=== PATIENT | female | born 1975 | race Caucasian/White ===

== ENCOUNTER 2017-03-22 14:10 | Inpatient (IN) ==
[2017-03-22 15:08] LABS: Basophils % 0.3 %; Eosinophils # 0.1 K/mcL (0.0-0.6); Eosinophils % 0.7 %; Hemoglobin 12.2 g/dL (11.5-15.4); Immature Granulocytes % 0.3 % (0-4); Lymphocytes # 1.4 K/mcL (0.6-4.6); Lymphocytes % 12.3 %; Mean Corpuscular HGB Conc 30.5 g/dL (31.6-35.5); Mean Corpuscular Hemoglobin 21.7 pg (28.0-33.3); Mean Corpuscular Volume 71.3 fL (83.0-100.0); Mean Platelet Volume 8.8 fL (9.4-12.4); Monocytes # 0.7 K/mcL (0.0-1.3); Monocytes % 5.8 %; Neutrophils # 9.2 K/mcL (1.6-8.9); Platelet Count 208 K/mcL (140-400); Red Blood Count 5.61 M/mcL (3.82-4.97); Segmented Neutrophils % 80.6 %
[2017-03-22 15:22] LABS: BUN/Creatinine Ratio 15 (6-26); Blood Urea Nitrogen 15 mg/dL (6-20); Calcium 9.1 mg/dL (8.6-10.3); Carbon Dioxide 27 mEq/L (23-29); Chloride 104 mEq/L (98-107); Glucose 91 mg/dL (70-105); Osmolality,Calculated 284 (280-300); Sodium 137 mEq/L (136-145); eGFR For African Americans > 60 (> 60); eGFR For Non-African Americans > 60 (> 60)
[2017-03-22] MEDS ORDERED: Ketorolac 15 MG/ML VIAL IVP ONE (17:51)
--- NOTE | 2017-03-22 17:53 | Emergency Department Note ---
Disposition Clinical Impression: Pulmonary embolism Qualifiers: Pulmonary embolism type: other Chronicity: acute Acute cor pulmonale presence: without acute cor pulmonale Qualified Code(s): I26.99 - Other pulmonary embolism without acute cor pulmonale Disposition: Admitted As Inpatient Condition: Good Time of Disposition: 19:50 Chest Pain HPI - General Chief Complaint: ED Chest Pain Stated Complaint: chest pain Time Seen by Provider: 03/22/17 16:45 Source: patient, family Limitations: no limitations Vital Signs Reviewed: Yes Nursing Notes Reviewed: Yes - History of Present Illness HPI Narrative: 42-year-old female otherwise healthy on estrogen control for the past year resents to the ED with chest pain. Symptoms have been persistent for the past 4 days. She describes a sharp pain under the left breast on the left chest wall as well as the left neck. She reports this is persistent and has never gone away. Nothing seems to make it better or worse. Some associated shortness of breath. Hurts with deep inspiration and pleuritic. She has not taken anything for the pain. Denies any recent illness, fever or productive cough. No history of blood clots. She has been on multiple control medications with the recent change this past month. She denies any history of cardiac ischemic disease. Recent cardiac ablation 1 year ago for SVT. Denies smoking. Denies family cardiac history. Denies recent surgery, hospitalizations, long distance travel. Prior to my evaluation labs were ordered in our unremarkable. A D dimer was ordered and elevated at 2169. Will obtain a CT of the chest to evaluate for possible pulmonary embolism. Toward all for pain. Pt complaint: chest pain Onset (ago): day(s) Duration: constant Onset: during rest Pain Location: left chest Severity scale (1-10): 5 Quality: sharp Pain Radiation: none Improves with: nothing Worsens with: nothing - Related Data Home Medications Medication Instructions Recorded Confirmed Omeprazole Magnesium 20 mg PO DAILY 04/06/15 03/22/17 buPROPion HCl [Zyban] 150 mg PO BID 04/06/15 03/22/17 lamoTRIgine [Lamictal] 100 mg PO HS 04/06/15 03/22/17 Diltiazem HCl [Cardizem LA] 120 mg PO DAILY 10/02/15 03/22/17 Desog-E.estradiol/E.estradiol 1 tab PO DAILY 03/22/17 03/22/17 [Pimtrea 28 Day Tablet] Sertraline [Zoloft] 100 mg PO DAILY 03/22/17 03/22/17 Allergies Allergy/AdvReac Type Severity Reaction Status Date / Time Amoxicillin Allergy Hives Verified 03/22/17 19:44 Penicillins [PCN] Allergy Hives Verified 03/22/17 19:44 All systems ED: reviewed and negative except as stated. Review of Systems: As Per HPI Constitutional: Denies: fever, chills, weakness ENT ED: Denies: throat pain, congestion Cardiovascular: Reports: chest pain. Denies: dyspnea on exertion Respiratory: Reports: dyspnea. Denies: cough Gastrointestinal: Denies: abdominal pain, nausea, vomiting Genitourinary: Denies: urgency, dysuria Musculoskeletal: Denies: back pain, neck pain Integumentary: Denies: rash, abrasion Neurological: Denies: headache Chest Pain PMH - Past Medical History Medical history: Reports: SVT Surgical history: Reports: other (Cardiac ablasion) Psychiatric history: Reports: no psych history - Social History Smoking Status: Never smoker Alcohol use: Reports: none Drug use: Reports: none Physical Exam - General Limitations: no limitations General appearance: alert, in no apparent distress - Head Head exam: atraumatic, normocephalic, normal inspection - Eye Eye exam: Present: normal appearance, PERRL, EOMI - ENT ENT exam: normal exam, normal oropharynx, mucous membranes moist - Neck Neck exam: Present: normal inspection, full ROM, trachea midline - Chest Chest inspection: Present: normal inspection, symmetric chest wall rise. Absent : tenderness - Respiratory Respiratory exam: Present: normal lung sounds bilaterally. Absent: respiratory distress, wheezes - Cardiovascular Cardiovascular exam: Present: regular rate, normal rhythm, normal heart sounds. Absent: systolic murmur, diastolic murmur - Abdominal Exam Abdominal exam: Present: soft, Non-Tender, normal bowel sounds. Absent: tenderness, distention, guarding, rebound, rigidity - Extremities Exam Extremities exam: Present: normal inspection, full ROM, normal capillary refill. Absent: tenderness, pedal edema, calf tenderness - Back Exam Back exam: Present: normal inspection, full ROM. Absent: tenderness - Neurological Exam Neurological exam: Present: alert, oriented X3 - Psychiatric Psychiatric exam: Present: normal affect, normal mood - Skin Skin exam: Present: warm, dry, intact, normal color. Absent: rash, cyanosis, diaphoresis Course - Reevaluation(s) Reevaluation #1: Patient remains hemodynamically stable. No signs of heart injury, no elevation of troponin. This is not a massive pulmonary embolism. Will treat with 1 mg per kilogram Lovenox. Patient denies any placeable, black tarry stool, hemoptysis, hematemesis. Patient will require admission for her pulmonary embolism and further workup. She denies any family history of blood clots. Suspect this is likely a provoked PE from control pills. Patient and family are comfortable and in agreement with this plan. Time: 19:28 - Consultations Consultation #1: Spoke with [facility], PE on left seen on CT scan Time: 19:10 Consultation #2: Spoke with on-call hospitalist maday Tuttle to admit for chest pain, pulmonary embolism. No further orders at this time. Patient was given dose of Lovenox Time: 20:08 Vital Signs Temperature 98.4 F 03/22/17 14:14 Pulse Rate 103 03/22/17 14:14 Respiratory Rate 18 03/22/17 14:14 Blood Pressure 120/71 03/22/17 14:14 O2 Sat by Pulse Oximetry 96 03/22/17 14:14 Temperature 97.9 F 03/22/17 21:46 Pulse Rate 85 03/22/17 21:46 Respiratory Rate 16 03/22/17 21:46 Blood Pressure 105/70 03/22/17 21:46 O2 Sat by Pulse Oximetry 95 03/22/17 21:46 Oxygen Delivery Oxygen Delivery Room Air Chest Pain - MDM Narrative Medical decision making narrative: Patient was discussed with my attending physician who agrees with ED management and final disposition. They independently evaluated the patient. Please refer to their attestation to this encounter for additional information. This note was generated by [employer] voice recognition software and as a result grammatical or spelling errors may occur using this program. - Medical Records Medical records reviewed: Yes I reviewed the patient's medical records. - Lab Data Lab results reviewed: Yes I reviewed the patient's lab results. Result diagrams: 03/22/17 15:01 03/22/17 15:01 Lab Results 03/22/17 03/22/17 03/22/17 Range/Units 15:01 15:01 15:01 WBC 11.4 H (4.3-11.1) K/mcL RBC 5.61 H (3.82-4.97) M/mcL Hgb 12.2 (11.5-15.4) g/dL Hct 40.0 (35.3-44.9) % MCV 71.3 L (83.0-100.0) fL MCH 21.7 L (28.0-33.3) pg MCHC 30.5 L (31.6-35.5) g/dL RDW 18.0 H (11.5-14.5) % Plt Count 208 (140-400) K/mcL MPV 8.8 L (9.4-12.4) fL Immature Gran % 0.3 (0-4) % Seg Neutrophils % 80.6 % Lymphocytes % 12.3 % Monocytes % 5.8 % Eosinophils % 0.7 % Basophils % 0.3 % Neutrophils # 9.2 H (1.6-8.9) K/mcL Lymphocytes # 1.4 (0.6-4.6) K/mcL Monocytes # 0.7 (0.0-1.3) K/mcL Eosinophils # 0.1 (0.0-0.6) K/mcL Basophils # 0.0 (0.0-0.2) K/mcL PT (9.4-12.1) Seconds INR APTT (26.0-36.0) Seconds D-Dimer (0-500) ng/mLFEU Sodium 137 (136-145) mEq/L Potassium 4.0 (3.5-5.1) mEq/L Chloride 104 (98-107) mEq/L Carbon Dioxide 27 (23-29) mEq/L BUN 15 (6-20) mg/dL Creatinine 1.00 (0.60-1.20) mg/dL Est GFR ( Amer) > 60 (> 60) Est GFR (Non-Af Amer) > 60 (> 60) BUN/Creatinine Ratio 15 (6-26) Glucose 91 (70-105) mg/dL Calculated Osmolality 284 (280-300) Calcium 9.1 (8.6-10.3) mg/dL Troponin I < 0.03 (< 0.04) ng/mL B-Natriuretic Peptide (Less than 100) pg/mL 03/22/17 03/22/17 03/22/17 Range/Units 15:01 15:01 20:09 WBC (4.3-11.1) K/mcL RBC (3.82-4.97) M/mcL Hgb (11.5-15.4) g/dL Hct (35.3-44.9) % MCV (83.0-100.0) fL MCH (28.0-33.3) pg MCHC (31.6-35.5) g/dL RDW (11.5-14.5) % Plt Count (140-400) K/mcL MPV (9.4-12.4) fL Immature Gran % (0-4) % Seg Neutrophils % % Lymphocytes % % Monocytes % % Eosinophils % % Basophils % % Neutrophils # (1.6-8.9) K/mcL Lymphocytes # (0.6-4.6) K/mcL Monocytes # (0.0-1.3) K/mcL Eosinophils # (0.0-0.6) K/mcL Basophils # (0.0-0.2) K/mcL PT 13.0 H (9.4-12.1) Seconds INR 1.2 APTT 26.6 (26.0-36.0) Seconds D-Dimer 2169 H (0-500) ng/mLFEU Sodium (136-145) mEq/L Potassium (3.5-5.1) mEq/L Chloride (98-107) mEq/L Carbon Dioxide (23-29) mEq/L BUN (6-20) mg/dL Creatinine (0.60-1.20) mg/dL Est GFR ( Amer) (> 60) Est GFR (Non-Af Amer) (> 60) BUN/Creatinine Ratio (6-26) Glucose (70-105) mg/dL Calculated Osmolality (280-300) Calcium (8.6-10.3) mg/dL Troponin I (< 0.04) ng/mL B-Natriuretic Peptide 22 (Less than 100) pg/mL - Radiology Data Radiology results reviewed: Yes I reviewed the patient's radiology results. Chest X-Ray 03/22/17 14:16 IMPRESSION: No acute cardiopulmonary process. D/ / 03/22/2017 15:11:41 Jayjay Ramsey MD / reshmaay Interpreting Provider: Jayjay Ramsey MD Chest CTA 03/22/17 17:37 IMPRESSION: Filling defects are noted in the left-sided pulmonary arteries, greatest in the lateral main pulmonary artery and left lower lobe pulmonary arteries. This is likely due to pulmonary embolus. The airspace disease in the left lower lobe is most likely atelectasis. Developing infarct would be difficult to exclude. Right-sided pulmonary nodule without calcification. Critical results were called by Dr. Dante Ramirez to Wolfgang Blas on 03/22/2017 at 19:10. RECOMMENDATIONS: Fleischner Society guidelines for follow-up and management of incidentally detected pulmonary nodules: Single Solid Nodule: Nodule size less than 6 mm In a low-risk patient, no routine follow-up. In a high-risk patient, optional CT at 12 months. Nodule size equals 6-8 mm In a low-risk patient, CT at 6-12 months, then consider CT at 18-24 months. In a high-risk patient, CT at 6-12 months, then CT at 18-24 months. Nodule size greater than 8 mm In a low-risk patient, consider CT, PET/CT, or tissue sampling at 3 months. In a high-risk patient, consider CT, PET/CT, or tissue sampling at 3 months. Multiple Solid Nodules: Nodule size less than 6 mm In a low-risk patient, no routine follow-up. In a high-risk patient, optional CT at 12 months. Nodule size equals 6-8 mm In a low-risk patient, CT at 3-6 months, then consider CT at 18-24 months. In a high-risk patient, CT at 3-6 months, then CT at 18-24 months. Nodule size greater than 8 mm In a low-risk patient, CT at 3-6 months, then consider CT at 18-24 months. In a high-risk patient, CT at 3-6 months, then CT at 18-24 months. - Low risk patients include individuals with minimal or absent history of smoking and other known risk factors. - High risk patients include individuals with a history or smoking or known risk factors. Radiology 2017 http://pubs.rsna.org/doi/full/10.1148/radiol.[email or web address] D/ / Dante Ramirez / Dante Ramirez Interpreting Provider: Dante Ramirez - EKG Data EKG attestation: Yes I reviewed and interpreted this EKG. EKG results narrative: EKG performed 1417 interpreted by myself without cardiology, sinus tachycardia 10 1 bpm, no ST elevations or depression, no T wave inversion, possible incomplete RBBB, intervals are within normal limits. Compared to prior EKG performed at outside facility showed similar finding of sinus tachycardia 100 bpm. No acute ischemic changes. Heart Score - Score History: Slightly Suspicious EKG: Normal Age: Less than 45 Risk Factors: 1-2 risk factors Troponin: Less than normal limit HEART Score Total: 1 Attestation Statement - Attestation Attestation: I examined this patient and my medical decision-making was reviewed with the Resident Physician. I agree with the documented findings, disposition and treatment plan as described except to the extent set forth below. Findings consistent with pulmonary embolism. Patient will be admitted for further evaluation. Lovenox was given for anticoagulation. No signs of heart strain at this time.
[2017-03-22] MEDS ORDERED: *HR* Enoxaparin 120 MG/0.8 ML SYRINGE SQ STA (19:26)
[2017-03-22] MEDS ORDERED: 0.9 % Sodium Chloride 1,000 ML IVC ONE (19:29)
[2017-03-22] MEDS ORDERED: *HR* Morphine 2 MG/ML SYRINGE IVP ONE (19:30)
[2017-03-22 20:23] LABS: INR 1.2
[2017-03-22 20:26] LABS: Activated Partial Thrombo Time 26.6 Seconds (26.0-36.0)
--- NOTE | 2017-03-22 23:55 | Internal Med History&Physical ---
Date of Encounter: 03/22/17 Time of Encounter: 23:55 Assessment and Plan (1) Pulmonary embolism Current visit: Yes Status: Acute Intractable left chest pain secondary to left pulmonary emboli Stop control pills Options were discussed with the patient and she prefers to be on a heparin drip and start Coumadin at the moment. Stop Lovenox and start heparin drip with no bolus, start Coumadin 5 mg daily IV fluids Oxycodone and morphine for pain control Omeprazole for GI prophylaxis and heparin drip for the PD prophylaxis. She will be admitted for observation. Full code. Time spent on this admission 40 minutes Qualifiers: Pulmonary embolism type: other Chronicity: acute Acute cor pulmonale presence: without acute cor pulmonale Qualified Code(s): I26.99 - Other pulmonary embolism without acute cor pulmonale (2) Leukocytosis Current visit: Yes Status: Acute Qualifiers: Leukocytosis type: unspecified Qualified Code(s): D72.829 - Elevated white blood cell count, unspecified (3) GERD (gastroesophageal reflux disease) Current visit: Yes Status: Acute Continue omeprazole Qualifiers: Esophagitis presence: without esophagitis Qualified Code(s): K21.9 - Gastro -esophageal reflux disease without esophagitis (4) SVT (supraventricular tachycardia) Current visit: Yes Status: Acute Continue diltiazem Internal Medicine - H&P: HPI Chief complaint: Chest pain Admitted From: Emergency Dept History of present illness: Ms. Aggarwal is a 42 year old female with a past medical history of SVT status post cardiac ablation currently taking diltiazem, GERD, depression with no prior history of clots, currently on control pills. The patient mentioned that for the past 4 days she has been experiencing left chest pain, sharp 9 out of 10 in intensity with no associated factors and mild shortness of breath. Heart rate was 95 white blood cell count 11.4 d-dimer was 2169, CT scan of the chest was performed showing left lateral and lower pulmonary arteries emboli. Patient was given a dose of Lovenox, pain is still present. Denies any prolonged traveling or prior episodes. No other complaints, no leg swelling Past Med Surg Social Fam HX - Past Medical History Medical history: GERD, SVT, other Psychiatric history: no psych history, depression - Past Surgical History Surgical History: other (Cardiac ablation) - Social History Smoking Status: Never smoker Smokeless Tobacco Status: No Alcohol use: none Drug use: none - Family History Mother Living Status: Still Living Father Living Status: Still Living - Additional Family History Additional family history: Denies any family history Internal Medicine - H&P: Meds Omeprazole Magnesium 20 mg PO DAILY 04/06/15 [History] buPROPion HCl [Zyban] 150 mg PO BID 04/06/15 [History] lamoTRIgine [Lamictal] 100 mg PO HS 04/06/15 [History] Diltiazem HCl [Cardizem LA] 120 mg PO DAILY 10/02/15 [History] Desog-E.estradiol/E.estradiol [Pimtrea 28 Day Tablet] 1 tab PO DAILY 03/22/17 [ History] Sertraline [Zoloft] 100 mg PO DAILY 03/22/17 [History] 3 Allergy/AdvReac Type Severity Reaction Status Date / Time Amoxicillin Allergy Hives Verified 03/22/17 19:44 Penicillins [PCN] Allergy Hives Verified 03/22/17 19:44 All Systems PM: A 10-system review of systems was performed and is negative for pertinent findings except as documented above in the HPI. Review of systems: Chest pain shortness of breath, other systems out of the 10 revealed were negative - Constitutional Vitals: Temp Pulse Resp BP Pulse Ox 97.9 F 85 16 105/70 95 03/22/17 21:46 03/22/17 21:46 03/22/17 21:46 03/22/17 21:46 03/22/17 21:46 General appearance: Present: A&O X 3 - Head Head exam: Present: atraumatic, normocephalic - Eye Eye exam: Present: PERRL, conjuntiva pink, sclera anicteric Pupils: Present: PERRL - Neck Neck exam general surgery: Present: supple, trachea midline. Absent: lymphadenopathy - Respiratory Respiratory exam: Present: CTAB. Absent: accessory muscle use, rales, rhonchi, wheezes - Cardiovascular Cardiovascular exam: Present: RRR, +S1, +S2. Absent: diastolic murmur, gallop, rubs, systolic murmur - GI/Abdominal GI/Abdominal exam: Present: normal bowel sounds, soft, no peritoneal signs. Absent: distended, tenderness - Extremities Exam Extremities exam: Present: warm, radial pulses palpable and symmetrical. Absent : calf tenderness, cyanotic, pedal edema - Neurological Exam Neurological exam: Present: CN II-XII intact, oriented X3, no focal deficits. Absent: pronater drift, facial droop, speech deficit - Skin Skin exam: Present: dry, intact Internal Med - H&P Results - Labs CBC & Chem 7: 03/22/17 15:01 03/22/17 15:01
[2017-03-23] MEDS ORDERED: *HR* Warfarin 5 MG TABLET PO ONE ×2 (00:13→18:00)
[2017-03-23] MEDS ORDERED: Naloxone 0.4 MG/ML INJ IVP PRN (00:14)
[2017-03-23] MEDS ORDERED: *HR* OxyCODONE Immed Rel 5 MG TABLET PO PRN (00:14)
[2017-03-23] MEDS ORDERED: Acetaminophen 325 MG TABLET PO PRN (00:14)
[2017-03-23] MEDS ORDERED: Ondansetron 4 MG/2 ML VIAL IVP PRN (00:14)
[2017-03-23] MEDS ORDERED: *HR* Heparin 5,000 UNIT/ML VIAL IVP PRN ×4 (00:14→08:00)
[2017-03-23] MEDS ORDERED: Heparin 25,000 UNIT/500 ML D5W 25,000 UNIT/500 ML BAG IVC SCH (00:15)
[2017-03-23] MEDS: *HR* Morphine 2 MG/ML SYRINGE IVP PRN ×2 (01:36→19:07)
[2017-03-23] MEDS: 0.9 % Sodium Chloride 1,000 ML IVC SCH ×2 (01:36→15:01)
[2017-03-23 01:42] LABS: Hemoglobin 10.9 g/dL (11.5-15.4); Mean Corpuscular HGB Conc 30.3 g/dL (31.6-35.5); Mean Corpuscular Hemoglobin 21.6 pg (28.0-33.3); Mean Corpuscular Volume 71.4 fL (83.0-100.0); Mean Platelet Volume 9.4 fL (9.4-12.4); Platelet Count 201 K/mcL (140-400); Red Blood Count 5.04 M/mcL (3.82-4.97); Red Cell Distribution Width 17.7 % (11.5-14.5)
[2017-03-23 01:47] LABS: INR 1.2; Prothrombin Time 12.8 Seconds (9.4-12.1)
[2017-03-23 01:49] LABS: Activated Partial Thrombo Time 33.8 Seconds (26.0-36.0)
[2017-03-23 07:17] LABS: INR 1.2; Prothrombin Time 13.1 Seconds (9.4-12.1)
[2017-03-23] MEDS: Heparin 25,000 UNIT/500 ML D5W 25,000 UNIT/500 ML BAG IVC SCH ×2 (07:54→22:00)
[2017-03-23] MEDS ORDERED: *HR* HYDROmorphone (PF) 1 MG/ML SYRINGE IVP ONE (08:20)
[2017-03-23] MEDS: BuPROPion SR (12 HR) 150 MG TABLET PO SCH ×2 (09:15→21:20)
[2017-03-23] MEDS: Diltiazem CD (24hr) 120 MG CAPSULE PO SCH (09:15)
[2017-03-23] MEDS: traMADol 50 MG TABLET PO PRN ×2 (15:00→21:20)
--- NOTE | 2017-03-23 16:34 | Electrocardiograph Report ---
[address] [place], [place] [address] Test Date: 2017-03-22 Pat Name: Napoleon Aggarwal Department: 104 Room: 3B45 Gender: F [employer]: MAMI : 1975 Requested By: Arabella See Order Number: [id number] Reading MD: Barbara Kuhn Measurements Intervals [place] Rate: 101 P: 54 AK: 141 QRS: 43 QRSD: 89 T: 29 QT: 321 QTc: 379 Interpretive Statements SINUS TACHYCARDIA INCOMPLETE RBBB ABNORMAL RHYTHM ECG Electronically Signed On 03-23-2017 16:33:04 EST by Barbara Kuhn
--- NOTE | 2017-03-23 17:37 | Internal Med Progress Note ---
Date of Encounter: 03/23/17 Time of Encounter: 11:00 - Assessment and plan (1) Pulmonary embolism Current Visit: Yes Status: Acute Assessment and plan: -CTPA showed filling defects are noted in the left-sided pulmonary arteries, greatest in the lateral main pulmonary artery and left lower lobe pulmonary arteries. -Echocardiogram showed LVEF of 60% with normal left and right ventricular structure and function with no valvular dysfunction. No pulmonary hypertension identified. -Patient with chest discomfort secondary to pulmonary embolism -She is hemodynamically stable -Discussed with patient about anticoagulation options including Xarelto, Eliquis and Coumadin; patient to decide. -Will continue therapeutic heparinization -Will consult pulmonology and appreciate recommendations. Qualifiers: Pulmonary embolism type: other Chronicity: acute Acute cor pulmonale presence: without acute cor pulmonale Qualified Code(s): I26.99 - Other pulmonary embolism without acute cor pulmonale (2) SVT (supraventricular tachycardia) Current Visit: Yes Status: Acute Assessment and plan: -Will continue Cardizem (3) GERD (gastroesophageal reflux disease) Current Visit: Yes Status: Acute Assessment and plan: -Continue PPI Qualifiers: Esophagitis presence: without esophagitis Qualified Code(s): K21.9 - Gastro -esophageal reflux disease without esophagitis (4) DVT prophylaxis Current Visit: Yes Status: Acute Assessment and plan: -Continue therapeutic heparin - Subjective Interval history: Patient with chest discomfort secondary to left pulmonary embolism. She is hemodynamically stable - Constitutional Vitals: Temp Pulse Resp BP Pulse Ox 97.7 F 94 20 109/73 96 03/23/17 15:07 03/23/17 15:07 03/23/17 15:07 03/23/17 15:07 03/23/17 15:07 General appearance: Present: A&O X 3 - Respiratory Respiratory exam: Present: CTAB. Absent: accessory muscle use, rales, rhonchi, wheezes - Cardiovascular Cardiovascular exam: Present: RRR, +S1, +S2. Absent: diastolic murmur, gallop, rubs, systolic murmur Internal Medicine: Result - Labs CBC & Chem 7: 03/23/17 00:49 03/22/17 15:01 Labs: Short CBC 03/23/17 Range/Units 00:49 WBC 10.4 (4.3-11.1) K/mcL Hgb 10.9 L (11.5-15.4) g/dL Hct 36.0 (35.3-44.9) % Plt Count 201 (140-400) K/mcL - ABG Interpretation ABG results: PT/INR, D-dimer PT 13.1 Seconds (9.4-12.1) H 03/23/17 06:04 D-Dimer 2169 ng/mLFEU (0-500) H 03/22/17 15:01 - Impressions Impressions Echocardiogram 03/23/17 10:03 Impressions: LVEF 60%. Normal left ventricular diastolic function. Normal right ventricular structure and function. No significant valvular dysfunction. No pulmonary hypertension. Left Ventricular Wall Motion: Rest Echo Findings All wall segments showed normal motion. Findings: Study Quality * Technically adequate exam. ECG Findings * Normal sinus rhythm. Left Ventricle * LVEF 60%. * Normal LV chamber size, wall thickness and function. * Normal left ventricular diastolic function. Right Ventricle * Normal right ventricular structure and function. Left Atrium * Normal left atrial size. Right Atrium * Normal right atrial size. Aortic Valve * No aortic regurgitation. * Aortic valve not well visualized. * No aortic stenosis. Mitral Valve * Normal mitral valve structure. * No mitral regurgitation. * No mitral stenosis. Tricuspid Valve * Tricuspid valve not well visualized. * Trace tricuspid regurgitation. * Estimated RA pressure is 3 mmHg. * Estimated RVSP is 15 mmHg. * No pulmonary hypertension. Pulmonic Valve * Pulmonic valve is not well visualized. * No pulmonic stenosis. * No pulmonic regurgitation. Pulmonary Artery * Pulmonary artery not well visualized. Aorta * Normally sized aortic root. Pericardium * There is no pericardial effusion present. Interatrial Septum * No evidence of PFO by color Doppler. IVC * Normal IVC dimensions and inspiratory collapse. Consult Discharge Plan - Plan Referrals: Sherry Mooney, [employer]PUT[employer] [Primary Care Provider] -
[2017-03-23] MEDS: lamoTRIgine 100 MG TABLET PO SCH (21:20)
[2017-03-24] MEDS: *HR* Morphine 2 MG/ML SYRINGE IVP PRN ×3 (01:35→09:52)
[2017-03-24] MEDS: Diltiazem CD (24hr) 120 MG CAPSULE PO SCH (09:52)
[2017-03-24] MEDS: BuPROPion SR (12 HR) 150 MG TABLET PO SCH ×2 (09:52→20:50)
--- NOTE | 2017-03-24 16:43 | Pain Management Consultation ---
Date of Encounter: 03/24/17 Time of Encounter: 16:41 Assessment and Plan (1) Myofascial pain Current Visit: Yes Status: Acute The patient was evaluated for low back pain that seems to be most likely secondary to muscular dysfunction and spasm. Recommend followin. If no contraindications based on current medical therapy for pulmonary embolus, consider IV NSAID therapy for anti-inflammatory treatment. 2. Consider oral muscle relaxant 3 times a day when necessary. 3. Recommend continued use of ice but not heat. 4. I discussed the fact that this is most likely a muscle spasm syndrome with the patient and I impressed upon her that movement and moving her right lower limb would be beneficial. 5. Follow up with me routinely as an outpatient. The assessment and plan as outlined above was discussed with the patient and/or family members who expressed understanding and agreement. All questions were answered. History of Present Illness Chief complaint: back pain HPI: Ms. Aggarwal is a 42 year old female who is a patient of mine. The patient began to experience chest pain for the first time on Tuesday which is approximately 5 days ago. The pain never subsided and she was evaluated in the emergency department on Tuesday and was eventually admitted to the hospital for a pulmonary embolus. Just before Tuesday, the patient had been experiencing tightness that was episodic in her right lower back and right buttock. The pain did not exist on the left side at that time. After being admitted to the hospital on Tuesday, the pain became severe since she has been lying in bed for the past 3 days. The pain is described as a deep burning and aching sensation that gets worse when she moves. The pain score when moving is 10/10. When lying still, pain subsides. She denies pain radiating into her leg. Oral opioids and IV opioids are not effective to control pain. Past Med Surg Social Fam HX - Past Medical History Medical history: GERD, SVT, other Psychiatric history: no psych history, depression - Past Surgical History Surgical History: other (Cardiac ablation) - Social History Smoking Status: Never smoker Smokeless Tobacco Status: No Alcohol use: none Drug use: none - Family History Mother Living Status: Still Living Father Living Status: Still Living Medications and Allergies Omeprazole Magnesium 20 mg PO DAILY 04/06/15 [History] buPROPion HCl [Zyban] 150 mg PO BID 04/06/15 [History] lamoTRIgine [Lamictal] 100 mg PO HS 04/06/15 [History] Diltiazem HCl [Cardizem LA] 120 mg PO DAILY 10/02/15 [History] Desog-E.estradiol/E.estradiol [Pimtrea 28 Day Tablet] 1 tab PO DAILY 03/22/17 [ History] Sertraline [Zoloft] 100 mg PO DAILY 03/22/17 [History] 3 Allergy/AdvReac Type Severity Reaction Status Date / Time Amoxicillin Allergy Hives Verified 03/22/17 19:44 Penicillins [PCN] Allergy Hives Verified 03/22/17 19:44 Review of Systems - Constitutional Constitutional ROS IM: no photophobia, no phonophobia, no daytime sleepiness, no fever(s), no stops breathing during sleep - EENT Nose, mouth and throat: no headache(s), no neck pain, no neck trauma - Cardiovascular Cardiovascular ROS: no chest pain, no leg edema, no lightheadedness - Respiratory Respiratory: no pain on inspiration, no pain with cough - Gastrointestinal Gastrointestinal: no abdominal pain, no constipation, no diarrhea, no heartburn - Genitourinary Genitourinary ROS: no difficulty urinating, no flank pain, no urinary hesitancy - Musculoskeletal Musculoskeletal ROS: as per HPI, no muscle weakness, no numbness, no radiating pain into limb, no tingling - Integumentary Integumentary: no erythema, no lesions, no swelling - Neurological Neurological ROS: no abnormal gait, no behavioral changes, no focal weakness, no radicular pain - Psychiatric Psychiatric general: no anxiety, no confusion, no depression - Hematologic/Lymphatic Hematologic/Lymphatic pediatric: no easy bleeding, no easy bruising Physical Exam Initial Vital Signs Temp Pulse Resp BP Pulse Ox 98.4 F 103 18 120/71 96 03/22/17 14:14 03/22/17 14:14 03/22/17 14:14 03/22/17 14:14 03/22/17 14:14 - Additional Findings EYES:: pupils equal and round, no myosis. SKIN:: no areas of echymoses or petechiae CARDIOVASCULAR:: Tachycardia PULMONARY:: Quiet, normal respiratory pattern. GASTROINTESTINAL:: Nontender abdomen MUSCULOSKELETAL INSPECTION:: no surgical scarring in lumbar spine or right lateral hip PALPATION:: paraspinous musculature is not tender to deep palpation in the lumbar area bilaterally. There is no obvious muscle spasm with palpation of the gluteal muscles or the right lumbar paraspinal muscles. ROM:: Active flexion and extension are reduced in the lumbar area. Active Rotation is reduced in the lumbar area. STRENGTH:: RIGHT hip flexors: 5/5 :: LEFT hip flexors: 5/5 RIGHT hip adduction 5/5 :: LEFT hip adduction 5/5 RIGHT hip abduction 5/5 :: LEFT hip abduction 5/5 RIGHT knee extension 5/5 :: LEFT knee extension 5/5 RIGHT knee flexion 5/5 :: LEFT knee flexion 5/5 RIGHT ankle dorsiflexion 5/5 :: LEFT ankle dorsiflexion 5/5 RIGHT ankle plantarflexion 5/5 :: LEFT ankle plantarflexion 5/5 RIGHT great toe dorsiflexion 5/5 :: LEFT great toe dorsiflexion 5/5 RIGHT great toe plantarflexion 5/5 :: LEFT great toe plantarflexion 5/5 STRAIGHT LEG RAISE:: RLE is negative at 120 degrees. NEUROLOGIC SENSATION:: hypesthesia is not noted in lower extremity dermatomes. SIGNS OF NEUROVASCULAR COMPRESSION Spasticity:: none Atrophy:: not present in UE or LE musculature Fasciculation:: not present in UE or LE musculature PSYCHIATRIC:: ORIENTATION:: awake and alert. INSIGHT:: good awareness of illness. AFFECT:: pleasant. Radiology Images Viewed By Me:: CT angiogram of the chest shows thoracolumbar scoliosis in addition to a pulmonary embolus I have reviewed and agree with information documented in the scribed documentation, ROS, patient medications, allergies, medical history, surgical history, social history, and family history. Results - Labs 03/23/17 00:49 03/22/17 15:01 Abnormal lab results RBC 5.04 M/mcL (3.82-4.97) H 03/23/17 00:49 Hgb 10.9 g/dL (11.5-15.4) L 03/23/17 00:49 MCV 71.4 fL (83.0-100.0) L 03/23/17 00:49 MCH 21.6 pg (28.0-33.3) L 03/23/17 00:49 MCHC 30.3 g/dL (31.6-35.5) L 03/23/17 00:49 RDW 17.7 % (11.5-14.5) H 03/23/17 00:49 Neutrophils # 9.2 K/mcL (1.6-8.9) H 03/22/17 15:01 PT 13.1 Seconds (9.4-12.1) H 03/23/17 06:04 APTT 62.4 Seconds (26.0-36.0) H 03/24/17 04:51 D-Dimer 2169 ng/mLFEU (0-500) H 03/22/17 15:01 All other labs normal. Consult Discharge Plan - Plan Referrals: Sherry Mooney, [employer] [Primary Care Provider] -
--- NOTE | 2017-03-24 17:53 | Internal Med Progress Note ---
Date of Encounter: 03/24/17 Time of Encounter: 11:00 - Assessment and plan (1) Pulmonary embolism Current Visit: Yes Status: Acute Assessment and plan: -CTPA showed filling defects are noted in the left-sided pulmonary arteries, greatest in the lateral main pulmonary artery and left lower lobe pulmonary arteries. -Echocardiogram showed LVEF of 60% with normal left and right ventricular structure and function with no valvular dysfunction. No pulmonary hypertension identified. -Patient with chest discomfort secondary to pulmonary embolism -She is hemodynamically stable -Discussed with patient about anticoagulation options including Xarelto, Eliquis and Coumadin; patient to decide. -Patient has decided for Coumadin so we will bridge with Lovenox overnight and plan for discharge with Lovenox and Coumadin on 03/25/17 Qualifiers: Pulmonary embolism type: other Chronicity: acute Acute cor pulmonale presence: without acute cor pulmonale Qualified Code(s): I26.99 - Other pulmonary embolism without acute cor pulmonale (2) SVT (supraventricular tachycardia) Current Visit: Yes Status: Acute Assessment and plan: -Will continue Cardizem (3) GERD (gastroesophageal reflux disease) Current Visit: Yes Status: Acute Assessment and plan: -Continue PPI Qualifiers: Esophagitis presence: without esophagitis Qualified Code(s): K21.9 - Gastro -esophageal reflux disease without esophagitis (4) DVT prophylaxis Current Visit: Yes Status: Acute Assessment and plan: -Coumadin with Lovenox bridge - Subjective Interval history: Patient with chest discomfort secondary to left pulmonary embolism. She is hemodynamically stable - Constitutional Vitals: Temp Pulse Resp BP Pulse Ox 97.9 F 84 16 126/73 95 03/24/17 16:14 03/24/17 16:14 03/24/17 16:14 03/24/17 16:14 03/24/17 16:14 General appearance: Present: A&O X 3 - Respiratory Respiratory exam: Present: CTAB. Absent: accessory muscle use, rales, rhonchi, wheezes - Cardiovascular Cardiovascular exam: Present: RRR, +S1, +S2. Absent: diastolic murmur, gallop, rubs, systolic murmur Internal Medicine: Result - Labs CBC & Chem 7: 03/23/17 00:49 03/22/17 15:01 - ABG Interpretation ABG results: PT/INR, D-dimer PT 13.1 Seconds (9.4-12.1) H 03/23/17 06:04 D-Dimer 2169 ng/mLFEU (0-500) H 03/22/17 15:01 Consult Discharge Plan - Plan Referrals: Sherry Mooney, CINETECHNICIAN [Primary Care Provider] -
--- NOTE | 2017-03-24 17:56 | Pulmonology Consult Note ---
Date of Encounter: 03/24/17 Time of Encounter: 07:40 Assessment and Plan (1) Pulmonary embolism Current Visit: Yes Status: Acute It appears that patient has provoked pulmonary embolism since she is been on oral contraceptive pills and she does not have any signs or labs findings suggestive of right heart strain and she remains hemodynamically stable. Discussed with the patient and also primary team patient can be transition to oral anticoagulation of patient's preference and she needs at least 3-6 months of treatment. She should avoid agents which triggers this events. Thank you very much for consultation and please do not hesitate to call for any questions. Patient will follow-up with her primary care for outpatient treatment. Qualifiers: Pulmonary embolism type: other Chronicity: acute Acute cor pulmonale presence: without acute cor pulmonale Qualified Code(s): I26.99 - Other pulmonary embolism without acute cor pulmonale (2) HEYDI (obstructive sleep apnea) Current Visit: Yes Status: Chronic I have advised patient to be compliant with her treatment and she is welcome to follow up as outpatient to address her issues with the CPAP. She understands all the risks associated with untreated obstructive sleep apnea. History of Present Illness Consult date: 03/24/17 Requesting physician: Mikey Esqueda Reason for consult: pulmonary embolism Chief complaint: Chest pain History of present illness: This is a very pleasant 42-year-old female with history of SVT status post cardiac ablation and also history of depression and obstructive sleep apnea but she has not been using care CPAP. Patient presented to the hospital with left- sided chest pain and she was found to have pulmonary embolism. Patient denies any recent surgery and no history of blood clots in the past or miscarriages. She denies any history of lupus. Patient denies any family history of upper coagulable conditions. Patient denies any recent history of traveling long distances. She is to have generalized body ache and was found to have as admission pulmonary embolism. She has no significant productive cough or wheezing. She denies any significant weight loss. Past Med Surg Social Fam HX - Past Medical History Medical history: GERD, SVT, other Psychiatric history: no psych history, depression - Past Surgical History Surgical History: other (Cardiac ablation) - Social History Smoking Status: Never smoker Smokeless Tobacco Status: No Alcohol use: none Drug use: none - Family History Mother Living Status: Still Living Father Living Status: Still Living Medications and Allergies Omeprazole Magnesium 20 mg PO DAILY 04/06/15 [History] buPROPion HCl [Zyban] 150 mg PO BID 04/06/15 [History] lamoTRIgine [Lamictal] 100 mg PO HS 04/06/15 [History] Diltiazem HCl [Cardizem LA] 120 mg PO DAILY 10/02/15 [History] Desog-E.estradiol/E.estradiol [Pimtrea 28 Day Tablet] 1 tab PO DAILY 03/22/17 [ History] Sertraline [Zoloft] 100 mg PO DAILY 03/22/17 [History] 3 Allergy/AdvReac Type Severity Reaction Status Date / Time Amoxicillin Allergy Hives Verified 03/22/17 19:44 Penicillins [PCN] Allergy Hives Verified 03/22/17 19:44 All Systems: A 10-system review of systems was performed and is negative for pertinent findings except as documented above in the HPI. Physical Examination Vital Signs: Vital Signs, Last 4 Hours Temp Pulse Resp BP Pulse Ox 03/24/17 16:14 97.9 F 84 16 126/73 95 General appearance: no acute distress Eyes: nonicteric ENT: oropharynx moist Mallampati (class): 3 Neck: supple, no lymphadenopathy Effort: normal Inspection: normal Auscultation: bilateral: clear Percussion: bilateral: not dull Cardiovascular: regular rate and rhythm Gastrointestinal: normoactive bowel sounds, non-distended Extremities: no cyanosis, no edema normal mental status, non-focal exam mood appropriate Results - Laboratory Findings CBC and BMP: 03/23/17 00:49 03/22/17 15:01 PT/INR, D-dimer PT 13.1 Seconds (9.4-12.1) H 03/23/17 06:04 D-Dimer 2169 ng/mLFEU (0-500) H 03/22/17 15:01 Abnormal lab findings: Abnormal lab results RBC 5.04 M/mcL (3.82-4.97) H 03/23/17 00:49 Hgb 10.9 g/dL (11.5-15.4) L 03/23/17 00:49 MCV 71.4 fL (83.0-100.0) L 03/23/17 00:49 MCH 21.6 pg (28.0-33.3) L 03/23/17 00:49 MCHC 30.3 g/dL (31.6-35.5) L 03/23/17 00:49 RDW 17.7 % (11.5-14.5) H 03/23/17 00:49 Neutrophils # 9.2 K/mcL (1.6-8.9) H 03/22/17 15:01 PT 13.1 Seconds (9.4-12.1) H 03/23/17 06:04 APTT 62.4 Seconds (26.0-36.0) H 03/24/17 04:51 D-Dimer 2169 ng/mLFEU (0-500) H 03/22/17 15:01 - Diagnostic Findings CT scan - chest: report reviewed, image reviewed - Clinical Findings Intake & Output: Intake & Output 03/24/17 03/24/17 03/24/17 07:59 15:59 23:59 Intake Total 475 / 475 Output Total 800 / 800 Balance -325 / -325 Weight 116.7 kg Consult Discharge Plan - Plan Referrals: Sherry Mooney, [employer]ER [Primary Care Provider] -
[2017-03-24] MEDS ORDERED: *HR* Warfarin 5 MG TABLET PO ONE (18:00)
[2017-03-24] MEDS ORDERED: *HR* Enoxaparin 120 MG/0.8 ML SYRINGE SQ SCH (20:00)
[2017-03-24] MEDS: traMADol 50 MG TABLET PO PRN (20:49)
[2017-03-24] MEDS: lamoTRIgine 100 MG TABLET PO SCH (20:50)
[2017-03-24] MEDS: *HR* Enoxaparin 120 MG/0.8 ML SYRINGE SQ SCH (22:13)
[2017-03-24] MEDS: Ibuprofen 400 MG TABLET PO PRN (23:40)
[2017-03-25] MEDS: *HR* Enoxaparin 120 MG/0.8 ML SYRINGE SQ SCH ×2 (05:47→16:47)
[2017-03-25 06:02] LABS: INR 1.5; Prothrombin Time 15.9 Seconds (9.4-12.1)
[2017-03-25] MEDS: Diltiazem CD (24hr) 120 MG CAPSULE PO SCH (10:02)
[2017-03-25] MEDS: BuPROPion SR (12 HR) 150 MG TABLET PO SCH (10:02)
[2017-03-25] MEDS: Ibuprofen 400 MG TABLET PO PRN (12:48)
--- NOTE | 2017-03-25 15:41 | Discharge Summary ---
Date of Encounter: 03/25/17 Time of Encounter: 11:00 - Discharge Diagnosis (1) Pulmonary embolism Priority: Primary Status: Acute Qualifiers: Pulmonary embolism type: other Chronicity: acute Acute cor pulmonale presence: without acute cor pulmonale Qualified Code(s): I26.99 - Other pulmonary embolism without acute cor pulmonale (2) SVT (supraventricular tachycardia) Priority: Secondary Status: Acute (3) GERD (gastroesophageal reflux disease) Priority: Secondary Status: Acute Qualifiers: Esophagitis presence: without esophagitis Qualified Code(s): K21.9 - Gastro -esophageal reflux disease without esophagitis - Discharge Medications Prescriptions: Enoxaparin [Lovenox] 120 mg SQ Q12HCO #60 syringe Cyclobenzaprine [Flexeril] 10 mg PO TID PRN #20 tablet PRN Reason: Spasms Warfarin [Coumadin] 5 mg PO DAILY@1800 #30 tablet Home Medications: Omeprazole Magnesium 20 mg PO DAILY 04/06/15 [History] buPROPion HCl [Zyban] 150 mg PO BID 04/06/15 [History] lamoTRIgine [Lamictal] 100 mg PO HS 04/06/15 [History] Diltiazem HCl [Cardizem LA] 120 mg PO DAILY 10/02/15 [History] Sertraline [Zoloft] 100 mg PO DAILY 03/22/17 [History] Cyclobenzaprine [Flexeril] 10 mg PO TID PRN #20 tablet 03/25/17 [Rx] Enoxaparin [Lovenox] 120 mg SQ Q12HCO #60 syringe 03/25/17 [Rx] Warfarin [Coumadin] 5 mg PO DAILY@1800 #30 tablet 03/25/17 [Rx] Allergies/Adverse Reactions: 3 Allergy/AdvReac Type Severity Reaction Status Date / Time Amoxicillin Allergy Hives Verified 03/22/17 19:44 Penicillins [PCN] Allergy Hives Verified 03/22/17 19:44 Date of admission: 03/23/17 17:42 Primary care physician: Sherry Mooney, - Patient Status Disposition: Home, Self-Care Condition: Good - Discharge Instructions Follow Up With: Sherry Mooney, CIRCULATION REPRESENTATIVE [Primary Care Provider] - Hospital course: Patient is a 42-year-old female with past medical history significant for SVT status post cardiac ablation currently taking diltiazem, GERD, depression with no prior history of clots, who was on control pills and presented to the ER on 03/23/17 due to chest pain and shortness of breath. She reported that her symptoms started approximate 4 days prior to admission and described her chest pain as sharp with a severity of 9 out 10 associated with shortness of breath. In the ER, patients heart rate was 95 and d-dimer was 2169; CT showed scan of the chest showed left lateral and lower pulmonary arteries emboli. Patient was admitted to medical surgical floor for management of PE. During patients hospital stay, she was on heparin drip and her acute hypoxic respiratory failure resolved; oxygen supplementation was weaned off. Echocardiogram showed LVEF of 60% with normal left and right ventricular structure and function with no valvular dysfunction. No pulmonary hypertension identified. Patient has chosen Coumadin for anticoagulation and will be sent home with Lovenox for bridging with Coumadin. She will follow up with the Coumadin clinic. - Time Spent with Patient Total time spent providing and/or coordinating discharge services: Less than 30 minutes - Constitutional Vitals: Temp Pulse Resp BP Pulse Ox 98.1 F 81 17 95/70 94 03/25/17 11:19 03/25/17 11:19 03/25/17 11:19 03/25/17 11:19 03/25/17 11:19 General appearance: Present: A&O X 3 - Respiratory Respiratory exam: Present: CTAB. Absent: accessory muscle use, rales, rhonchi, wheezes - Cardiovascular Cardiovascular exam: Present: RRR, +S1, +S2. Absent: diastolic murmur, gallop, rubs, systolic murmur
[2017-03-25 16:18] VITALS: BP 109/68
[2017-03-25] MEDS ORDERED: *HR* Warfarin 5 MG TABLET PO SCH (18:00)
== END 2017-03-25 17:30 | disposition home or self-care (01) | DRG 175 ==
LOC: EMEROO 14:10 → 3BNU 14:10 → SUATTDRO 03-23 17:42
PROVIDERS: ADMIT Internal Medicine; ATTEND Hospitalist

== ENCOUNTER 2017-06-23 23:06 | Observation (INO) ==
--- NOTE | 2017-06-23 23:31 | Emergency Department Note ---
Disposition Clinical Impression: Chest pain Disposition: Admitted As Inpatient Condition: Fair General Adult HPI - General Chief complaint: ED Chest Pain Stated complaint: CP Source: patient Limitations: no limitations Nursing Notes Reviewed: Yes Vital Signs Reviewed: Yes - History of Present Illness Pain Scale: 9 - Related Data Home Medications Medication Instructions Recorded Confirmed Omeprazole Magnesium 20 mg PO DAILY 04/06/15 06/24/17 buPROPion HCl [Zyban] 150 mg PO BID 04/06/15 06/24/17 lamoTRIgine [Lamictal] 100 mg PO HS 04/06/15 06/24/17 Diltiazem HCl [Cardizem LA] 120 mg PO DAILY 10/02/15 06/24/17 Sertraline [Zoloft] 100 mg PO DAILY 03/22/17 06/24/17 Previous Rx's Medication Instructions Recorded Warfarin [Coumadin] 5 mg PO DAILY@1800 #30 tablet 03/25/17 Allergies Allergy/AdvReac Type Severity Reaction Status Date / Time Amoxicillin Allergy Hives Verified 06/23/17 23:13 Penicillins [PCN] Allergy Hives Verified 06/23/17 23:13 Past Medical History - Past Medical History Medical history: Reports: GERD, pulmonary embolus, SVT, other Surgical history: Reports: other (Cardiac ablation) Psychiatric history: Reports: depression - Social History Smoking Status: Never smoker Smokeless Tobacco Status: No Alcohol use: Reports: none Drug use: Reports: none Physical Exam - General Limitations: no limitations General appearance: alert, in no apparent distress Course - Reevaluation(s) Reevaluation #1: Saw pt with Dr. Stubbs. This is a 42 year-old female with history of PE, on Coumadin, who presents with pleuritic chest pain and dyspnea for the past 18 hours. She is concerned that she has another PE. INR was therapeutic as of Tuesday. On exam, comfortable-appearing, VSS, heart RRR no MRG, lungs CTAB. Plan chest CTA. Time: 01:32 Vital Signs Temperature 98.1 F 06/23/17 23:17 Pulse Rate 92 06/23/17 23:17 Respiratory Rate 20 06/23/17 23:17 Blood Pressure 139/90 06/23/17 23:17 O2 Sat by Pulse Oximetry 96 06/23/17 23:17 Temperature 98.0 F 06/24/17 05:45 Pulse Rate 75 06/24/17 05:45 Respiratory Rate 16 06/24/17 05:45 Blood Pressure 121/75 06/24/17 05:45 O2 Sat by Pulse Oximetry 97 06/24/17 05:45 Oxygen Delivery Oxygen Delivery Room Air Medical Decision Making - Lab Data Lab results reviewed: Yes I reviewed the patient's lab results. Result diagrams: 06/23/17 23:58 06/23/17 23:58 Lab Results 06/23/17 06/23/17 06/23/17 Range/Units 23:48 23:48 23:58 WBC 10.3 (4.3-11.1) K/mcL RBC 5.52 H (3.82-4.97) M/mcL Hgb 13.7 (11.5-15.4) g/dL Hct 42.3 (35.3-44.9) % MCV 76.6 L (83.0-100.0) fL MCH 24.8 L (28.0-33.3) pg MCHC 32.4 (31.6-35.5) g/dL RDW 22.2 H (11.5-14.5) % Plt Count 216 (140-400) K/mcL MPV 8.2 L (9.4-12.4) fL Immature Gran % 0.3 (0-4) % Seg Neutrophils % 71.9 % Lymphocytes % 17.1 % Monocytes % 9.3 % Eosinophils % 1.0 % Basophils % 0.4 % Neutrophils # 7.4 (1.6-8.9) K/mcL Lymphocytes # 1.8 (0.6-4.6) K/mcL Monocytes # 1.0 (0.0-1.3) K/mcL Eosinophils # 0.1 (0.0-0.6) K/mcL Basophils # 0.0 (0.0-0.2) K/mcL PT 28.6 H (9.4-12.1) Seconds INR 2.6 APTT 39.2 H (26.0-36.0) Seconds Sodium (136-145) mEq/L Potassium (3.5-5.1) mEq/L Chloride (98-107) mEq/L Carbon Dioxide (23-29) mEq/L BUN (6-20) mg/dL Creatinine (0.60-1.20) mg/dL Est GFR ( Amer) (> 60) Est GFR (Non-Af Amer) (> 60) BUN/Creatinine Ratio (6-26) Glucose (70-105) mg/dL Calculated Osmolality (280-300) Calcium (8.6-10.3) mg/dL Troponin I (< 0.04) ng/mL B-Natriuretic Peptide 6 (Less than 100) pg/mL Triglycerides (< 150) mg/dL Cholesterol (< 200) mg/dL LDL Cholesterol, Calc (0-99) mg/dL VLDL Cholesterol, Calc (< 31) mg/dL HDL Cholesterol (40-59) mg/dL Cholesterol/HDL Ratio (0-4.9) 06/23/17 06/24/17 Range/Units 23:58 04:16 WBC (4.3-11.1) K/mcL RBC (3.82-4.97) M/mcL Hgb (11.5-15.4) g/dL Hct (35.3-44.9) % MCV (83.0-100.0) fL MCH (28.0-33.3) pg MCHC (31.6-35.5) g/dL RDW (11.5-14.5) % Plt Count (140-400) K/mcL MPV (9.4-12.4) fL Immature Gran % (0-4) % Seg Neutrophils % % Lymphocytes % % Monocytes % % Eosinophils % % Basophils % % Neutrophils # (1.6-8.9) K/mcL Lymphocytes # (0.6-4.6) K/mcL Monocytes # (0.0-1.3) K/mcL Eosinophils # (0.0-0.6) K/mcL Basophils # (0.0-0.2) K/mcL PT (9.4-12.1) Seconds INR APTT (26.0-36.0) Seconds Sodium 137 (136-145) mEq/L Potassium 3.8 (3.5-5.1) mEq/L Chloride 106 (98-107) mEq/L Carbon Dioxide 24 (23-29) mEq/L BUN 8 (6-20) mg/dL Creatinine 0.79 (0.60-1.20) mg/dL Est GFR ( Amer) > 60 (> 60) Est GFR (Non-Af Amer) > 60 (> 60) BUN/Creatinine Ratio 10 (6-26) Glucose 88 (70-105) mg/dL Calculated Osmolality 282 (280-300) Calcium 9.1 (8.6-10.3) mg/dL Troponin I < 0.03 < 0.03 (< 0.04) ng/mL B-Natriuretic Peptide (Less than 100) pg/mL Triglycerides 77 (< 150) mg/dL Cholesterol 161 (< 200) mg/dL LDL Cholesterol, Calc 98 (0-99) mg/dL VLDL Cholesterol, Calc 15 (< 31) mg/dL HDL Cholesterol 48 (40-59) mg/dL Cholesterol/HDL Ratio 3.4 (0-4.9) - Radiology Data Radiology results reviewed: Yes I reviewed the patient's radiology results. Chest CTA IMPRESSION: 1. No scan evidence for pulmonary embolus. 2. Trace left pleural effusion. - EKG Data EKG #1 EKG attestation: Yes I reviewed and interpreted this EKG. EKG results narrative: 23:17 - NSR at 99. No acute ischemic findings.
[2017-06-23] MEDS ORDERED: 0.9 % Sodium Chloride 1,000 ML IVC ONE (23:49)
[2017-06-23] MEDS ORDERED: Ondansetron 4 MG/2 ML VIAL IVP ONE (23:50)
[2017-06-23] MEDS ORDERED: *HR* FentaNYL (PF) 100 MCG/2 ML VIAL IVP ONE (23:50)
--- NOTE | 2017-06-23 23:52 | Emergency Department Note ---
Disposition Clinical Impression: Chest pain Qualifiers: Chest pain type: unspecified Qualified Code(s): R07.9 - Chest pain, unspecified Disposition: Admitted As Inpatient Condition: Fair Referrals: Sherry Mooney CNP [Primary Care Provider] - Forms: ED Satisfaction Letter Time of Disposition: 02:34 Chest Pain HPI - General Chief Complaint: ED Chest Pain Stated Complaint: CP Time Seen by Provider: 06/23/17 23:31 Source: patient Mode of arrival: ambulatory Limitations: no limitations Vital Signs Reviewed: Yes Nursing Notes Reviewed: Yes - History of Present Illness HPI Narrative: 42-year-old female with a history of pulmonary embolism on anticoagulation since for violation of chest pain. Patient had a left-sided PE diagnosed in March of this year. Patient woke up with pain similar to the pain that she described back then. Patient notes pain in the left side worse with deep inspiration. Patient does have radiation of pain Patient states she has been on Coumadin with her most recent value of 2.5. Patient's been seen in the hematology clinic and evaluated for factor V Leiden. Patient believes that the reason her PE originated in the beginning was due to hormonal therapy which she has since discontinued. Patient denies any fevers or cough. No abdominal pain. No nausea or vomiting. Patient denies any blood in her stool or dark tarry stools. Patient denies any active cancers. No recent travel. No lower extremity swelling. Severity scale (1-10): 9 - Related Data Home Medications Medication Instructions Recorded Confirmed Omeprazole Magnesium 20 mg PO DAILY 04/06/15 06/10/17 buPROPion HCl [Zyban] 150 mg PO BID 04/06/15 06/10/17 lamoTRIgine [Lamictal] 100 mg PO HS 04/06/15 06/10/17 Diltiazem HCl [Cardizem LA] 120 mg PO DAILY 10/02/15 06/10/17 Sertraline [Zoloft] 100 mg PO DAILY 03/22/17 06/10/17 Previous Rx's Medication Instructions Recorded Warfarin [Coumadin] 5 mg PO DAILY@1800 #30 tablet 03/25/17 Iron Fum,Ps/FA/Vit B with C #9 1 each PO BID #60 capsule 04/29/17 [Integra Plus Capsule] Ferrous Sulfate [Iron] 325 mg PO BID 30 Days #60 tablet 05/03/17 Allergies Allergy/AdvReac Type Severity Reaction Status Date / Time Amoxicillin Allergy Hives Verified 06/23/17 23:13 Penicillins [PCN] Allergy Hives Verified 06/23/17 23:13 All systems ED: reviewed and negative except as stated. Constitutional: Denies: fever Cardiovascular: Reports: chest pain Respiratory: Reports: dyspnea. Denies: cough Gastrointestinal: Denies: abdominal pain, nausea, vomiting, diarrhea Chest Pain PMH - Past Medical History Medical history: Reports: GERD, pulmonary embolus, SVT, other Surgical history: Reports: other (Cardiac ablation) Psychiatric history: Reports: depression - Social History Smoking Status: Never smoker Alcohol use: Reports: none Drug use: Reports: none Physical Exam - General Limitations: no limitations General appearance: alert, in no apparent distress - Head Head exam: atraumatic, normocephalic, normal inspection - Eye Eye exam: Present: normal appearance, PERRL, EOMI - ENT ENT exam: normal exam, normal oropharynx, mucous membranes moist - Neck Neck exam: Present: normal inspection - Chest Chest inspection: Present: normal inspection, symmetric chest wall rise - Respiratory Respiratory exam: Present: normal lung sounds bilaterally. Absent: respiratory distress - Cardiovascular Cardiovascular exam: Present: regular rate, normal rhythm. Absent: systolic murmur - Abdominal Exam Abdominal exam: Present: soft, Non-Tender - Extremities Exam Extremities exam: Present: normal inspection. Absent: pedal edema - Back Exam Back exam: Present: normal inspection - Neurological Exam Neurological exam: Present: alert, oriented X3, CN II-XII intact - Skin Skin exam: Present: warm, dry, intact, normal color Course Course Narrative: Patient seen and examined. Patient will get basic labs, CT Jacy chest. Patient get IV fluids. Concerns of pulmonary embolism. Disposition pending. - Reevaluation(s) Reevaluation #1: Patient seen and examined. Patient states her pain has improved her the patient is continuing to have some dull pain in her chest going into her left arm and back. Time: 02:23 Vital Signs Temperature 98.1 F 06/23/17 23:17 Pulse Rate 92 06/23/17 23:17 Respiratory Rate 20 06/23/17 23:17 Blood Pressure 139/90 06/23/17 23:17 O2 Sat by Pulse Oximetry 96 06/23/17 23:17 Temperature 98.1 F 06/23/17 23:17 Pulse Rate 87 06/24/17 01:32 Respiratory Rate 14 06/24/17 01:32 Blood Pressure 115/97 06/24/17 01:32 O2 Sat by Pulse Oximetry 95 06/24/17 01:32 Oxygen Delivery Oxygen Delivery Room Air Chest Pain - MDM Narrative Medical decision making narrative: Patient has a history of pulmonary embolism. Patient had an ED evaluation concerning for ACS versus PE. Patient's CT shows a left pleural effusion but no PE. Patient was treated with fentanyl, aspirin, nitroglycerin. Patient does have risk factors for ACS with a heart score 4. Given the patient's persistent symptoms she would likely need trending troponins as well as further cardiopulmonary evaluation. Patient was admitted the hospital service in stable condition. - Lab Data Lab results reviewed: Yes I reviewed the patient's lab results. Result diagrams: 06/23/17 23:58 06/23/17 23:58 Lab Results 06/23/17 06/23/17 06/23/17 Range/Units 23:48 23:48 23:58 WBC 10.3 (4.3-11.1) K/mcL RBC 5.52 H (3.82-4.97) M/mcL Hgb 13.7 (11.5-15.4) g/dL Hct 42.3 (35.3-44.9) % MCV 76.6 L (83.0-100.0) fL MCH 24.8 L (28.0-33.3) pg MCHC 32.4 (31.6-35.5) g/dL RDW 22.2 H (11.5-14.5) % Plt Count 216 (140-400) K/mcL MPV 8.2 L (9.4-12.4) fL Immature Gran % 0.3 (0-4) % Seg Neutrophils % 71.9 % Lymphocytes % 17.1 % Monocytes % 9.3 % Eosinophils % 1.0 % Basophils % 0.4 % Neutrophils # 7.4 (1.6-8.9) K/mcL Lymphocytes # 1.8 (0.6-4.6) K/mcL Monocytes # 1.0 (0.0-1.3) K/mcL Eosinophils # 0.1 (0.0-0.6) K/mcL Basophils # 0.0 (0.0-0.2) K/mcL PT 28.6 H (9.4-12.1) Seconds INR 2.6 APTT 39.2 H (26.0-36.0) Seconds Sodium (136-145) mEq/L Potassium (3.5-5.1) mEq/L Chloride (98-107) mEq/L Carbon Dioxide (23-29) mEq/L BUN (6-20) mg/dL Creatinine (0.60-1.20) mg/dL Est GFR ( Amer) (> 60) Est GFR (Non-Af Amer) (> 60) BUN/Creatinine Ratio (6-26) Glucose (70-105) mg/dL Calculated Osmolality (280-300) Calcium (8.6-10.3) mg/dL Troponin I (< 0.04) ng/mL B-Natriuretic Peptide 6 (Less than 100) pg/mL 06/23/17 Range/Units 23:58 WBC (4.3-11.1) K/mcL RBC (3.82-4.97) M/mcL Hgb (11.5-15.4) g/dL Hct (35.3-44.9) % MCV (83.0-100.0) fL MCH (28.0-33.3) pg MCHC (31.6-35.5) g/dL RDW (11.5-14.5) % Plt Count (140-400) K/mcL MPV (9.4-12.4) fL Immature Gran % (0-4) % Seg Neutrophils % % Lymphocytes % % Monocytes % % Eosinophils % % Basophils % % Neutrophils # (1.6-8.9) K/mcL Lymphocytes # (0.6-4.6) K/mcL Monocytes # (0.0-1.3) K/mcL Eosinophils # (0.0-0.6) K/mcL Basophils # (0.0-0.2) K/mcL PT (9.4-12.1) Seconds INR APTT (26.0-36.0) Seconds Sodium 137 (136-145) mEq/L Potassium 3.8 (3.5-5.1) mEq/L Chloride 106 (98-107) mEq/L Carbon Dioxide 24 (23-29) mEq/L BUN 8 (6-20) mg/dL Creatinine 0.79 (0.60-1.20) mg/dL Est GFR ( Amer) > 60 (> 60) Est GFR (Non-Af Amer) > 60 (> 60) BUN/Creatinine Ratio 10 (6-26) Glucose 88 (70-105) mg/dL Calculated Osmolality 282 (280-300) Calcium 9.1 (8.6-10.3) mg/dL Troponin I < 0.03 (< 0.04) ng/mL B-Natriuretic Peptide (Less than 100) pg/mL - Radiology Data Radiology results reviewed: Yes I reviewed the patient's radiology results. Chest CTA 06/24/17 23:49 IMPRESSION: 1. No scan evidence for pulmonary embolus. 2. Trace left pleural effusion. D/ / Taco Lai MD / Taco Lai MD Interpreting Provider: Taco Lai MD - EKG Data EKG attestation: Yes I reviewed and interpreted this EKG. EKG shows normal: sinus rhythm Rate: normal Rhythm: NSR [place]/QRS: normal T wave inversions noted in: aVR, v1 Interpretation: no acute changes Heart Score - Score History: Moderately Suspicious EKG: Non Specific repolarisation Disturbance Age: 45-65 Risk Factors: 1-2 risk factors Troponin: Less than normal limit HEART Score Total: 4 S.B.A.R. - S.B.A.R. Situation: Demographics Background: Presenting Complaint Assessment: Vital Signs, Patient/Family Expectation Recommendation: Barrier(s) to disposition, Recommendation based on pending studies, treatments, or consults S.B.A.RCassie Report Given to: Dr. Cohen S.B.AJoey Repor Time: 02:34
[2017-06-24 01:02] LABS: Basophils % 0.4 %; Eosinophils # 0.1 K/mcL (0.0-0.6); Hematocrit 42.3 % (35.3-44.9); Hemoglobin 13.7 g/dL (11.5-15.4); Immature Granulocytes % 0.3 % (0-4); Lymphocytes # 1.8 K/mcL (0.6-4.6); Lymphocytes % 17.1 %; Mean Corpuscular HGB Conc 32.4 g/dL (31.6-35.5); Mean Corpuscular Hemoglobin 24.8 pg (28.0-33.3); Mean Corpuscular Volume 76.6 fL (83.0-100.0); Mean Platelet Volume 8.2 fL (9.4-12.4); Monocytes % 9.3 %; Neutrophils # 7.4 K/mcL (1.6-8.9); Platelet Count 216 K/mcL (140-400); Red Blood Count 5.52 M/mcL (3.82-4.97); Red Cell Distribution Width 22.2 % (11.5-14.5); Segmented Neutrophils % 71.9 %
[2017-06-24 01:07] LABS: INR 2.6; Prothrombin Time 28.6 Seconds (9.4-12.1)
[2017-06-24 01:10] LABS: Activated Partial Thrombo Time 39.2 Seconds (26.0-36.0)
[2017-06-24 01:24] LABS: BUN/Creatinine Ratio 10 (6-26); Blood Urea Nitrogen 8 mg/dL (6-20); Calcium 9.1 mg/dL (8.6-10.3); Carbon Dioxide 24 mEq/L (23-29); Chloride 106 mEq/L (98-107); Glucose 88 mg/dL (70-105); Osmolality,Calculated 282 (280-300); Potassium 3.8 mEq/L (3.5-5.1); Sodium 137 mEq/L (136-145); eGFR For African Americans > 60 (> 60); eGFR For Non-African Americans > 60 (> 60)
[2017-06-24 01:25] LABS: Troponin I < 0.03 ng/mL (< 0.04)
[2017-06-24] MEDS ORDERED: Aspirin 81 MG TAB.CHEW PO ONE (02:20)
[2017-06-24] MEDS ORDERED: Nitroglycerin 1 INCH/GM PACKET TP ONE (02:20)
[2017-06-24] MEDS ORDERED: Ondansetron 4 MG/2 ML VIAL IVP PRN (03:58)
[2017-06-24] MEDS ORDERED: Naloxone 0.4 MG/ML INJ IVP PRN (03:58)
[2017-06-24] MEDS ORDERED: *HR* Promethazine 25 MG/ML VIAL IVP PRN (03:58)
[2017-06-24] MEDS ORDERED: Nitroglycerin 0.4 MG TAB.SUBL SL PRN (04:02)
--- NOTE | 2017-06-24 04:06 | Internal Med History&Physical ---
Date of Encounter: 06/24/17 Time of Encounter: 03:00 Internal Medicine - H&P: HPI Chief complaint: Chest pain Admitted From: Emergency Dept Plans for Post Hospital Care: Home History of present illness: Ms. Aggarwal is a 42 year old female with a history of anxiety, Depression, HTN and recently dx pulmonary embolism on Coumadin pt presented to ER with left side chest pain, radiating to left shoulder and back. felt like similar pain when she had PE. Her chest pain located left chest wall region , 6/10 in severity, continuos pain, radiating to left shoulder and more like sharp pain. Past Med Surg Social Fam HX - Past Medical History Medical history: GERD, pulmonary embolus, SVT, other Psychiatric history: depression - Past Surgical History Surgical History: other (Cardiac ablation) - Social History Smoking Status: Never smoker Smokeless Tobacco Status: No Alcohol use: none Drug use: none - Family History Mother Living Status: Still Living Father Living Status: Still Living Internal Medicine - H&P: Meds Omeprazole Magnesium 20 mg PO DAILY 04/06/15 [History] buPROPion HCl [Zyban] 150 mg PO BID 04/06/15 [History] lamoTRIgine [Lamictal] 100 mg PO HS 04/06/15 [History] Diltiazem HCl [Cardizem LA] 120 mg PO DAILY 10/02/15 [History] Sertraline [Zoloft] 100 mg PO DAILY 03/22/17 [History] Warfarin [Coumadin] 5 mg PO DAILY@1800 #30 tablet 03/25/17 [Rx] Iron Fum,Ps/FA/Vit B with C #9 [Integra Plus Capsule] 1 each PO BID #60 capsule 04/29/17 [Rx] Ferrous Sulfate [Iron] 325 mg PO BID 30 Days #60 tablet 05/03/17 [Rx] 3 Allergy/AdvReac Type Severity Reaction Status Date / Time Amoxicillin Allergy Hives Verified 06/23/17 23:13 Penicillins [PCN] Allergy Hives Verified 06/23/17 23:13 All Systems PM: A 10-system review of systems was performed and is negative for pertinent findings except as documented above in the HPI. Review of systems: All the systems are reviewed everything is benign except the systems and symptoms I mentioned in the history of present illness - Constitutional Vitals: Temp Pulse Resp BP Pulse Ox 98.1 F 87 14 115/97 95 06/23/17 23:17 06/24/17 01:32 06/24/17 01:32 06/24/17 01:32 06/24/17 01:32 General appearance: Present: A&O X 3, no acute distress, answers questions appropriately - Head Head exam: Present: atraumatic, normal inspection - Neck Neck exam general surgery: Present: supple - Respiratory Respiratory exam: Present: decreased breath sounds. Absent: rales, respiratory distress, rhonchi, wheezes - Cardiovascular Cardiovascular exam: Present: RRR, +S1, +S2. Absent: tachycardia - GI/Abdominal GI/Abdominal exam: Present: normal bowel sounds, soft. Absent: rebound, rigid, tenderness - Extremities Exam Extremities exam: Absent: calf tenderness, pedal edema, tenderness - Back Exam Back exam: Absent: CVA tenderness (L), CVA tenderness (R) - Neurological Exam Neurological exam: Present: alert, oriented X3 - Psychiatric Psychiatric exam: Present: normal affect, normal mood Internal Med - H&P Results - Labs CBC & Chem 7: 06/23/17 23:58 06/23/17 23:58 Labs: Short CBC 06/23/17 Range/Units 23:58 WBC 10.3 (4.3-11.1) K/mcL Hgb 13.7 (11.5-15.4) g/dL Hct 42.3 (35.3-44.9) % Plt Count 216 (140-400) K/mcL Neutrophils # 7.4 (1.6-8.9) K/mcL BMP 06/23/17 23:58 Sodium 137 Potassium 3.8 Chloride 106 Carbon Dioxide 24 BUN 8 Creatinine 0.79 Glucose 88 Calcium 9.1 Cardiac Enzymes 06/23/17 Range/Units 23:58 Troponin I < 0.03 (< 0.04) ng/mL - Impressions ITS Impressions Chest CTA 06/24/17 23:49 IMPRESSION: 1. No scan evidence for pulmonary embolus. 2. Trace left pleural effusion. D/ / Taco Lai MD / Taco Lai MD Interpreting Provider: Taco Lai MD - Assessment and plan (1) Chest pain Current Visit: Yes Status: Acute Assessment and plan: Will admit the pt into Tele for observation Will place pt on cardiac catheterization technologist check serial troponin so far negative troponin EKG reviewed - showed normal sinus rhythm, no acute ischemic changes will start pt on ASA and Nitro PRN for pain Will check FLP in AM Will get stress test in AM since pt is high risk for ACS CTA of the chest ruled out acute PE Qualifiers: Chest pain type: unspecified Qualified Code(s): R07.9 - Chest pain, unspecified (2) Pulmonary embolism Current Visit: No Status: Acute Assessment and plan: Chronic PE continue Coumadin for anticoagulation INR therapeutic Qualifiers: Pulmonary embolism type: other Chronicity: acute Acute cor pulmonale presence: without acute cor pulmonale Qualified Code(s): I26.99 - Other pulmonary embolism without acute cor pulmonale (3) HTN (hypertension) Current Visit: Yes Status: Acute Assessment and plan: stable with the current home medications Qualifiers: Hypertension type: essential hypertension Qualified Code(s): I10 - Essential (primary) hypertension (4) GERD (gastroesophageal reflux disease) Current Visit: No Status: Acute Assessment and plan: Resumed home PPI Qualifiers: Esophagitis presence: without esophagitis Qualified Code(s): K21.9 - Gastro -esophageal reflux disease without esophagitis (5) Iron deficiency anemia Current Visit: No Status: Acute Assessment and plan: Resumed home medication iron tablets Qualifiers: Iron deficiency anemia type: unspecified iron deficiency Qualified Code(s) : D50.9 - Iron deficiency anemia, unspecified - Time Spent With Patient Total time spent is greater than 50% in coordination of care (as documented) at patient's floor/unit and/or counseling patient:
[2017-06-24 04:58] LABS: Troponin I < 0.03 ng/mL (< 0.04)
[2017-06-24 04:59] LABS: Chol/HDL Ratio 3.4 (0-4.9); Cholesterol 161 mg/dL (< 200); HDL Cholesterol 48 mg/dL (40-59); LDL Cholesterol,Calculated 98 mg/dL (0-99); Triglycerides 77 mg/dL (< 150)
[2017-06-24] MEDS: Acetaminophen 325 MG TABLET PO PRN ×2 (05:19→17:00)
[2017-06-24] MEDS: *HR* HYDROcodone/Acet 5/325 mg TABLET PO PRN (05:42)
[2017-06-24] MEDS ORDERED: Regadenoson 0.4 MG/5 ML SYRINGE IVP ONE ×2 (06:13→10:29)
[2017-06-24] MEDS: Diltiazem CD (24hr) 120 MG CAPSULE PO SCH (10:16)
[2017-06-24] MEDS: BuPROPion SR (12 HR) 150 MG TABLET PO SCH ×2 (10:16→21:10)
[2017-06-24] MEDS: Aspirin Enteric Coated 81 MG Tablet PO SCH (10:16)
[2017-06-24] MEDS: INTEGRA PLUS PO SCH ×2 (10:16→21:08)
[2017-06-24] MEDS ORDERED: *HR* Warfarin 5 MG TABLET PO ONE (18:00)
[2017-06-24] MEDS ORDERED: Warfarin perPT PO PRN (18:00)
[2017-06-24] MEDS: lamoTRIgine 100 MG TABLET PO SCH (21:53)
[2017-06-25 05:45] LABS: Prothrombin Time 33.3 Seconds (9.4-12.1)
[2017-06-25] MEDS: Acetaminophen 325 MG TABLET PO PRN (07:40)
[2017-06-25] MEDS: BuPROPion SR (12 HR) 150 MG TABLET PO SCH ×2 (08:47→20:24)
[2017-06-25] MEDS: Aspirin Enteric Coated 81 MG Tablet PO SCH (08:48)
[2017-06-25] MEDS: Diltiazem CD (24hr) 120 MG CAPSULE PO SCH (08:48)
[2017-06-25] MEDS: INTEGRA PLUS PO SCH ×2 (10:27→20:27)
--- NOTE | 2017-06-25 13:12 | Electrocardiograph Report ---
[address] [id number] Test Date: 2017-06-23 Pat Name: Napoleon Aggarwal Department: 104 Room: 3B Gender: F Banking Attorney: IVAN : 1975 Requested By: Sachin Woodall Order Number: [id number] Reading MD: Barbara Kuhn Measurements Intervals [place] Rate: 99 P: 43 OK: 152 QRS: 30 QRSD: 99 T: 31 QT: 340 QTc: 396 Interpretive Statements SINUS RHYTHM Electronically Signed On 06-25-2017 13:10:16 EDT by Barbara Kuhn
--- NOTE | 2017-06-25 15:38 | Internal Med Progress Note ---
Date of Encounter: 06/25/17 Time of Encounter: 15:52 - Assessment and plan (1) Chest pain Current Visit: Yes Status: Acute Assessment and plan: presented with CP and associated SOB. Chest CTA negative for Pulmonary embolism. Stress test negative for ischemia or infarct. 03/2017 TTE with EF 60% , normal diastolic and systolic function. No wall motion abnormalities. Etiology unknown at this time, possible GI source as patient reports chest pain occurred under left breast and radiated to left shoulder. She also reports acid reflux with associated gastric discomfort at times. Could also be related to SVT. ABD CT pending. Qualifiers: Chest pain type: unspecified Qualified Code(s): R07.9 - Chest pain, unspecified (2) Pulmonary embolism Current Visit: No Status: Acute Assessment and plan: Recently diagnosed. 03/22/2017 chest CTA with sided filling defect most likely due to pulmonary embolus. Coumadin initiated at that time. Evaluated by oncology who noted; pulmonary embolism that occurred while on oral contraceptive therapy. Now with chest pain and SOB; repeat chest CTA unremarkable (no evidence of pulmonary embolism). Continue Coumadin for a total of 6 months per oncology recommendations. Qualifiers: Pulmonary embolism type: other Chronicity: acute Acute cor pulmonale presence: without acute cor pulmonale Qualified Code(s): I26.99 - Other pulmonary embolism without acute cor pulmonale (3) GERD (gastroesophageal reflux disease) Current Visit: No Status: Acute Assessment and plan: per hx. Sx's stable with home PPI. Qualifiers: Esophagitis presence: without esophagitis Qualified Code(s): K21.9 - Gastro -esophageal reflux disease without esophagitis (4) Iron deficiency anemia Current Visit: No Status: Acute Assessment and plan: per hx. Hgb 13.7 which appears improved from baseline. Continue home iron supplementation. Qualifiers: Iron deficiency anemia type: unspecified iron deficiency Qualified Code(s) : D50.9 - Iron deficiency anemia, unspecified (5) HTN (hypertension) Current Visit: Yes Status: Acute Assessment and plan: per hx. BP controlled. Cont home BP medications. Monitor BP and titrate PRN Qualifiers: Hypertension type: essential hypertension Qualified Code(s): I10 - Essential (primary) hypertension (6) SVT (supraventricular tachycardia) Current Visit: No Status: Acute Assessment and plan: per hx. S/p remote ablation. EKG with NSR. Continue home CCB. (7) DVT prophylaxis Current Visit: No Status: Acute Assessment and plan: coumadin - Time Spent With Patient Total time spent is greater than 50% in coordination of care (as documented) at patient's floor/unit and/or counseling patient: - Subjective Interval history: Seen and examined at bedside, patient is new to me. Information obtained from chart review and patient report. Still with complaint of chest pain and shortness of breath. His pain worse with activity and relieved with rest. She is concerned is recurrence of pulmonary embolism. Reassured that chest CTA does not show any evidence of blood clot. She reports chest pain starts to lower breast, lower upper abdomen and radiates to left shoulder. Reports some gastric upset at times. - Constitutional Vitals: Temp Pulse Resp BP Pulse Ox 98.0 F 83 17 109/70 96 06/25/17 11:59 06/25/17 11:59 06/25/17 11:59 06/25/17 11:59 06/25/17 11:59 General appearance: Present: A&O X 3, morbidly obese, no acute distress, answers questions appropriately - Head Head exam: Present: atraumatic, normocephalic - Eye Eye exam: Present: PERRL, conjuntiva pink, sclera anicteric Pupils: Present: PERRL - Neck Neck exam general surgery: Present: supple, trachea midline. Absent: lymphadenopathy - Respiratory Respiratory exam: Present: CTAB. Absent: accessory muscle use, rales, rhonchi, wheezes - Cardiovascular Cardiovascular exam: Present: RRR, +S1, +S2. Absent: diastolic murmur, gallop, rubs, systolic murmur - GI/Abdominal GI/Abdominal exam: Present: normal bowel sounds, soft, no peritoneal signs. Absent: distended, tenderness - Extremities Exam Extremities exam: Present: warm, radial pulses palpable and symmetrical. Absent : calf tenderness, cyanotic, pedal edema - Neurological Exam Neurological exam: Present: CN II-XII intact, oriented X3, no focal deficits. Absent: pronater drift, facial droop, speech deficit - Skin Skin exam: Present: dry, intact Internal Medicine: Result - Labs CBC & Chem 7: 06/23/17 23:58 06/23/17 23:58 - ABG Interpretation ABG results: PT/INR, D-dimer PT 33.3 Seconds (9.4-12.1) H 06/25/17 05:22 Consult Discharge Plan - Plan Referrals: Sherry Mooney CNP [Primary Care Provider] -
[2017-06-25] MEDS ORDERED: *HR* Warfarin 2.5 MG TABLET PO ONE (18:00)
[2017-06-25] MEDS: Furosemide 20 MG/2 ML VIAL IVP SCH (18:01)
[2017-06-25] MEDS: lamoTRIgine 100 MG TABLET PO SCH (20:23)
[2017-06-25] MEDS: *HR* HYDROcodone/Acet 5/325 mg TABLET PO PRN (20:26)
[2017-06-26 04:39] LABS: INR 2.8; Prothrombin Time 30.8 Seconds (9.4-12.1)
[2017-06-26 04:51] LABS: BUN/Creatinine Ratio 12 (6-26); Blood Urea Nitrogen 9 mg/dL (6-20); Carbon Dioxide 25 mEq/L (23-29); Chloride 105 mEq/L (98-107); Glucose 88 mg/dL (70-105); Osmolality,Calculated 280 (280-300); Potassium 4.1 mEq/L (3.5-5.1); Sodium 136 mEq/L (136-145); eGFR For African Americans > 60 (> 60); eGFR For Non-African Americans > 60 (> 60)
[2017-06-26] MEDS: Aspirin Enteric Coated 81 MG Tablet PO SCH (08:12)
[2017-06-26] MEDS: INTEGRA PLUS PO SCH (08:12)
[2017-06-26] MEDS: Furosemide 20 MG/2 ML VIAL IVP SCH (08:12)
[2017-06-26] MEDS: Diltiazem CD (24hr) 120 MG CAPSULE PO SCH (08:12)
[2017-06-26] MEDS: BuPROPion SR (12 HR) 150 MG TABLET PO SCH (08:12)
[2017-06-26 11:12] VITALS: BP 100/65
--- NOTE | 2017-06-26 12:22 | Discharge Summary ---
- NOTES TO OUTPATIENT PROVIDER Notes to Outpatient Provider: Recommend follow-up within 7-10 days. Recommend repeat imaging of chest to follow-up with pleural effusion Date of Encounter: 06/26/17 Time of Encounter: 12:20 - Discharge Diagnosis (1) Chest pain Priority: Primary Status: Acute Comments: presented with CP and associated SOB. Chest CTA negative for Pulmonary embolism. Stress test negative for ischemia or infarct. 03/2017 TTE with EF 60% , normal diastolic and systolic function. No wall motion abnormalities. She does have history of GERD and reported some gastric upset. ABD CT nonacute, no identifiable cause seen that would account for chest pain. CXR with small left pleural effusion, suspect this is the cause as symptoms improved with one time dose IV Lasix. Denied chest pain/SOB at time of discharge. Recommend follow- up with PCP within 1-2 weeks. Qualifiers: Chest pain type: unspecified Qualified Code(s): R07.9 - Chest pain, unspecified (2) Pleural effusion Priority: Primary Status: Acute Comments: CTA with small left pleural effusion. Possibly contributing to chest pain/SOB. Symptoms improved with one-time dose IV Lasix. Recommend follow-up with PCP within 1-2 weeks for repeat imaging. (3) Pulmonary embolism Priority: Primary Status: Acute Comments: Recently diagnosed. 03/22/2017 chest CTA with sided filling defect most likely due to pulmonary embolus. Coumadin initiated at that time. Evaluated by oncology who noted; pulmonary embolism that occurred while on oral contraceptive therapy. Now with chest pain and SOB; repeat chest CTA unremarkable (no evidence of pulmonary embolism). Continue Coumadin for a total of 6 months per oncology recommendations. Follow-up with oncology outpatient. Qualifiers: Pulmonary embolism type: other Chronicity: acute Acute cor pulmonale presence: without acute cor pulmonale Qualified Code(s): I26.99 - Other pulmonary embolism without acute cor pulmonale (4) GERD (gastroesophageal reflux disease) Priority: Primary Status: Acute Comments: per hx. Sx's stable with home PPI. Qualifiers: Esophagitis presence: without esophagitis Qualified Code(s): K21.9 - Gastro -esophageal reflux disease without esophagitis (5) Iron deficiency anemia Priority: Secondary Status: Chronic Comments: per hx. BP controlled. Cont home BP medications. Qualifiers: Iron deficiency anemia type: unspecified iron deficiency Qualified Code(s) : D50.9 - Iron deficiency anemia, unspecified (6) HTN (hypertension) Priority: Secondary Status: Chronic Comments: per hx. BP controlled. Cont home BP medication Qualifiers: Hypertension type: essential hypertension Qualified Code(s): I10 - Essential (primary) hypertension (7) SVT (supraventricular tachycardia) Priority: Secondary Status: Chronic Comments: per hx. S/p remote ablation. EKG with NSR. Has loop recorder. Continue home CCB. Follow-up with primary drum barker operator outpatient. Hospital course: See assessment and plan for hospital course Discharge discussed with: patient (Seen and examined at bedside. Says she is tired but overall feels better. No chest pain or shortness of breath. She thinks the Lasix helped. Says she feels better would like to go home today. Advised to return to the ER if chest pain/SOB recurs. Verbalized understanding. ) - Time Spent with Patient Total time spent providing and/or coordinating discharge services: - Discharge Medications Home Medications: Omeprazole Magnesium 20 mg PO DAILY 04/06/15 [History] buPROPion HCl [Zyban] 150 mg PO BID 04/06/15 [History] lamoTRIgine [Lamictal] 100 mg PO HS 04/06/15 [History] Diltiazem HCl [Cardizem LA] 120 mg PO DAILY 10/02/15 [History] Sertraline [Zoloft] 100 mg PO DAILY 03/22/17 [History] Cetirizine HCl 10 mg PO DAILY 06/24/17 [History] Ferrous Sulfate 325 mg PO BID 06/24/17 [History] Warfarin [Coumadin] 2.5 mg PO SUTUTHSA 06/24/17 [History] Warfarin [Coumadin] 5 mg PO MOWEFR 06/24/17 [History] Allergies/Adverse Reactions: 3 Allergy/AdvReac Type Severity Reaction Status Date / Time Amoxicillin Allergy Hives Verified 06/23/17 23:13 Penicillins [PCN] Allergy Hives Verified 06/23/17 23:13 Date of admission: 06/24/17 05:13 Primary care physician: Sherry Mooney, Discharging clinician: Aleja Arrieta Anticipated date of discharge: 06/26/17 - Constitutional Vitals: Temp Pulse Resp BP Pulse Ox 97.5 F L 80 18 100/65 96 06/26/17 11:10 06/26/17 11:10 06/26/17 11:10 06/26/17 11:10 06/26/17 11:10 General appearance: Present: A&O X 3, morbidly obese, no acute distress, answers questions appropriately - Head Head exam: Present: atraumatic, normocephalic - Eye Eye exam: Present: PERRL, conjuntiva pink, sclera anicteric Pupils: Present: PERRL - Neck Neck exam general surgery: Present: supple, trachea midline. Absent: lymphadenopathy - Respiratory Respiratory exam: Present: CTAB. Absent: accessory muscle use, rales, rhonchi, wheezes - Cardiovascular Cardiovascular exam: Present: RRR, +S1, +S2. Absent: diastolic murmur, gallop, rubs, systolic murmur - GI/Abdominal GI/Abdominal exam: Present: normal bowel sounds, soft, no peritoneal signs. Absent: distended, tenderness - Extremities Exam Extremities exam: Present: warm, radial pulses palpable and symmetrical. Absent : calf tenderness, cyanotic, pedal edema - Neurological Exam Neurological exam: Present: CN II-XII intact, oriented X3, no focal deficits. Absent: pronater drift, facial droop, speech deficit - Skin Skin exam: Present: dry, intact - Patient Status Disposition: Home, Self-Care Condition: Good Functional capacity at discharge: independent ambulation Overall status at discharge: patient is back to baseline - Discharge Instructions Instructions: Chest Pain (DC), Pulmonary Embolism (DC), Pleural Effusion (DC) Follow Up With: Sherry Mooney DIE POLISHER [Primary Care Provider] - (Call and make an appointment with your primary care doctor within 7-10 days after discharge) Additional Instructions: Please resume INR checks as previously scheduled. - Diet and Activity Activity: increase activity as tolerated Diet: diabetic diet, low fat, low cholesterol
[2017-06-26] MEDS ORDERED: *HR* Warfarin 2.5 MG TABLET PO ONE (18:00)
== END 2017-06-26 13:20 | disposition home or self-care (01) ==
LOC: 3BNU 23:06 → EMEROO 23:06 → 3BNU 06-24 05:31
PROVIDERS: ADMIT Family Medicine; ATTEND Registered Nurse

== ENCOUNTER 2020-01-08 15:49 | Inpatient (IN) ==
[2020-01-08] MEDS ORDERED: 0.9 % Sodium Chloride 1,000 ML IVC ONE (16:24)
[2020-01-08 16:57] LABS: Basophils % 0.4 %; Eosinophils # 0.1 K/mcL (0.0-0.6); Eosinophils % 0.9 %; Hematocrit 42.3 % (35.3-44.9); Hemoglobin 13.7 g/dL (11.5-15.4); Immature Granulocytes % 0.3 % (0-4); Lymphocytes # 1.1 K/mcL (0.6-4.6); Lymphocytes % 16.7 %; Mean Corpuscular HGB Conc 32.4 g/dL (31.6-35.5); Mean Corpuscular Hemoglobin 27.7 pg (28.0-33.3); Mean Corpuscular Volume 85.5 fL (83.0-100.0); Mean Platelet Volume 8.8 fL (9.4-12.4); Monocytes # 0.4 K/mcL (0.0-1.3); Monocytes % 5.9 %; Neutrophils # 5.2 K/mcL (1.6-8.9); Platelet Count 173 K/mcL (140-400); Red Blood Count 4.95 M/mcL (3.82-4.97); Red Cell Distribution Width 13.9 % (11.5-14.5); Segmented Neutrophils % 75.8 %; White Blood Count 6.8 K/mcL (4.3-11.1)
[2020-01-08 17:16] LABS: Acetaminophen < 10 mcg/mL (10-20); Alanine Aminotransferase 13 Units/L (7-52); Albumin 4.7 g/dL (3.5-5.7); Albumin/Globulin Ratio 1.9 (1.1-2.2); Alkaline Phosphatase 72 Units/L (34-104); Aspartate Amino Transferase 13 Units/L (13-39); BUN/Creatinine Ratio 11 (6-26); Bilirubin,Total 0.7 mg/dL (0.3-1.0); Blood Urea Nitrogen 11 mg/dL (6-20); Calcium 9.6 mg/dL (8.6-10.3); Carbon Dioxide 25 mEq/L (23-29); Chloride 105 mEq/L (98-107); Creatine Kinase 92 Units/L (30-223); Ethanol < 10 mg/dL (Less than 10); Globulin 2.5 g/dL (2.4-3.5); Glucose 103 mg/dL (70-105); Magnesium 2.1 mg/dL (1.6-2.6); Osmolality,Calculated 284 (280-300); Potassium 4.1 mEq/L (3.5-5.1); Salicylate < 2.5 mg/dL (15.0-30.0); Sodium 137 mEq/L (136-145); Total Protein 7.2 g/dL (6.4-8.9); eGFR For African Americans > 60 (> 60); eGFR For Non-African Americans > 60 (> 60)
[2020-01-08 17:38] LABS: Bilirubin,Urine Negative (Negative); Blood,Urine Negative (Negative); Clarity,Urine Clear (Clear); Color,Urine Light-Yellow (Yellow); Glucose,Urine (UA) Normal (Normal); Ketones,Urine Negative (Negative); Leukocyte Esterase,Urine Negative (Negative); Nitrite,Urine Negative (Negative); PH,Urine 7.5 pH Units (5.0-8.0); Protein,Urine Negative (Neg-Trace); Specific Gravity,Urine 1.016 (1.010-1.025); Urobilinogen,Urine Normal (Normal)
[2020-01-08 17:41] LABS: Amphetamine Screen,Urine Negative ng/mL (Cutoff=1000); Barbiturate Screen,Urine Negative ng/mL (Cutoff=200); Benzodiazepines Screen,Urine Negative ng/mL (Cutoff=200); Cannabinoid Screen,Urine Positive ng/mL (Cutoff = 50); Cocaine Screen,Urine Negative ng/mL (Cutoff= 300); Opiate Screen,Urine Negative ng/mL (Cutoff=300); Phencyclidine Screen,Urine Negative ng/mL (Cutoff=25)
[2020-01-08] MEDS ORDERED: *HR* LORazepam 0.5 MG TABLET PO ONE (18:57)
[2020-01-08] MEDS ORDERED: Ibuprofen 400 MG TABLET PO PRN (19:45)
[2020-01-08] MEDS ORDERED: Haloperidol Lactate 5 MG/ML VIAL IM PRN (19:45)
[2020-01-08] MEDS ORDERED: Mag Hydrox/Al Hydrox/Simeth 30 ML UDC PO PRN (19:45)
[2020-01-08] MEDS ORDERED: MOM Conc 10 ML UD.LIQ PO PRN (19:45)
[2020-01-08] MEDS ORDERED: *HR* LORazepam 2 MG/ML VIAL IM PRN (19:45)
[2020-01-08] MEDS ORDERED: haloperidoL 5 MG TABLET PO PRN (19:45)
[2020-01-08] MEDS ORDERED: *HR* LORazepam 1 MG TABLET PO PRN (19:45)
[2020-01-08] MEDS ORDERED: ALPRAZolam 1 MG TABLET PO PRN (20:18)
[2020-01-08] MEDS: traZODone 50 MG TABLET PO PRN ×2 (21:46→23:21)
[2020-01-08] MEDS: *HR* Rivaroxaban 10 MG TABLET PO SCH (21:47)
[2020-01-08] MEDS: hydrOXYzine pamoate 25 MG CAPSULE PO PRN (23:21)
[2020-01-09] MEDS ORDERED: Ziprasidone 20 MG CAPSULE PO SCH (09:00)
[2020-01-09] MEDS ORDERED: BuPROPion XL (24 HR) 150 MG TABLET PO SCH (09:00)
[2020-01-09] MEDS ORDERED: Loratadine 10 MG TABLET PO SCH (09:00)
[2020-01-09] MEDS: lamoTRIgine 100 MG TABLET PO SCH (09:28)
[2020-01-09] MEDS: Loratadine 10 MG TABLET PO SCH (09:29)
[2020-01-09] MEDS: hydrOXYzine pamoate 25 MG CAPSULE PO PRN ×2 (11:56→21:20)
[2020-01-09] MEDS: traZODone 50 MG TABLET PO PRN (21:20)
[2020-01-09] MEDS: *HR* Rivaroxaban 10 MG TABLET PO SCH (21:20)
[2020-01-09] MEDS: ALPRAZolam 1 MG TABLET PO SCH (21:20)
[2020-01-10] MEDS: modafiniL 100 MG TABLET PO SCH ×2 (09:12→11:42)
[2020-01-10] MEDS: lamoTRIgine 100 MG TABLET PO SCH (09:12)
[2020-01-10] MEDS: Loratadine 10 MG TABLET PO SCH (09:12)
[2020-01-10] MEDS: BuPROPion XL (24 HR) 150 MG TABLET PO SCH (09:12)
[2020-01-10] MEDS: ALPRAZolam 1 MG TABLET PO SCH ×2 (09:12→21:27)
[2020-01-10] MEDS: traZODone 50 MG TABLET PO PRN (21:27)
[2020-01-10] MEDS: hydrOXYzine pamoate 25 MG CAPSULE PO PRN (21:27)
[2020-01-10] MEDS: *HR* Rivaroxaban 10 MG TABLET PO SCH (21:27)
[2020-01-11] MEDS: BuPROPion XL (24 HR) 150 MG TABLET PO SCH (09:02)
[2020-01-11] MEDS: ALPRAZolam 1 MG TABLET PO SCH ×2 (09:02→20:22)
[2020-01-11] MEDS: lamoTRIgine 100 MG TABLET PO SCH (09:03)
[2020-01-11] MEDS: Loratadine 10 MG TABLET PO SCH (09:03)
[2020-01-11] MEDS: modafiniL 100 MG TABLET PO SCH ×2 (09:03→13:36)
[2020-01-11] MEDS: *HR* Rivaroxaban 10 MG TABLET PO SCH (20:23)
[2020-01-12] MEDS: BuPROPion XL (24 HR) 150 MG TABLET PO SCH (09:18)
[2020-01-12] MEDS: ALPRAZolam 1 MG TABLET PO SCH ×2 (09:19→20:32)
[2020-01-12] MEDS: lamoTRIgine 100 MG TABLET PO SCH (09:19)
[2020-01-12] MEDS: Loratadine 10 MG TABLET PO SCH (09:19)
[2020-01-12] MEDS: modafiniL 100 MG TABLET PO SCH ×2 (09:19→11:43)
[2020-01-12] MEDS: *HR* Rivaroxaban 10 MG TABLET PO SCH (20:32)
[2020-01-12] MEDS: traZODone 50 MG TABLET PO PRN (20:32)
[2020-01-13] MEDS: lamoTRIgine 100 MG TABLET PO SCH (08:54)
[2020-01-13] MEDS: ALPRAZolam 0.5 MG TABLET PO SCH ×2 (08:54→08:59)
[2020-01-13] MEDS: BuPROPion XL (24 HR) 150 MG TABLET PO SCH (08:55)
[2020-01-13] MEDS: Loratadine 10 MG TABLET PO SCH (08:55)
[2020-01-13] MEDS: modafiniL 100 MG TABLET PO SCH ×2 (08:55→12:25)
[2020-01-13] MEDS: traZODone 50 MG TABLET PO PRN (21:29)
[2020-01-13] MEDS: ALPRAZolam 1 MG TABLET PO SCH (21:29)
[2020-01-13] MEDS: *HR* Rivaroxaban 10 MG TABLET PO SCH (21:30)
[2020-01-14] MEDS: Loratadine 10 MG TABLET PO SCH (09:08)
[2020-01-14] MEDS: BuPROPion XL (24 HR) 150 MG TABLET PO SCH (09:09)
[2020-01-14] MEDS: lamoTRIgine 100 MG TABLET PO SCH (09:09)
[2020-01-14] MEDS: ALPRAZolam 0.5 MG TABLET PO SCH (09:09)
[2020-01-14] MEDS: modafiniL 100 MG TABLET PO SCH ×2 (09:09→13:06)
[2020-01-14] MEDS: ALPRAZolam 1 MG TABLET PO SCH (20:38)
[2020-01-14] MEDS: *HR* Rivaroxaban 10 MG TABLET PO SCH (20:38)
[2020-01-15] MEDS: modafiniL 100 MG TABLET PO SCH ×2 (08:52→12:01)
[2020-01-15] MEDS: ALPRAZolam 0.5 MG TABLET PO SCH (08:52)
[2020-01-15] MEDS: Loratadine 10 MG TABLET PO SCH (08:52)
[2020-01-15] MEDS: lamoTRIgine 100 MG TABLET PO SCH (08:53)
[2020-01-15] MEDS: BuPROPion XL (24 HR) 150 MG TABLET PO SCH (08:53)
[2020-01-15 09:08] VITALS: BP 106/72
== END 2020-01-15 12:40 | disposition home or self-care (01) | DRG 885 ==
LOC: EMEROOARM 15:49 → SUATTDRO 19:43 → 1ANU 19:43
PROVIDERS: ADMIT Psychiatry & Neurology Forensic Psychiatry; ATTEND Psychiatry & Neurology Psychiatry

== ENCOUNTER 2020-03-18 21:08 | Observation (INO) ==
[2020-03-18] MEDS ORDERED: Isovue-370 500 ML BOTTLE IVP ONE (21:39)
[2020-03-18 22:36] LABS: Bacteria,Urine Few per hpf (None-Few); Bilirubin,Urine Negative (Negative); Blood,Urine Moderate (Negative); Clarity,Urine Clear (Clear); Color,Urine Yellow (Yellow); Glucose,Urine (UA) Normal (Normal); Hyaline Casts,Urine Few per lpf (None Seen); Ketones,Urine Negative (Negative); Leukocyte Esterase,Urine Moderate (Negative); Mucus,Urine Few per lpf (None-Few); Nitrite,Urine Negative (Negative); Protein,Urine Trace mg/dL (Neg-Trace); Specific Gravity,Urine 1.022 (1.010-1.025); Squamous Epithelial Cell,Urine Few per hpf (None-Few); Urobilinogen,Urine Normal (Normal)
[2020-03-18 22:54] LABS: INR 1.3
[2020-03-18 22:55] LABS: Basophils % 0.2 %; Hematocrit 41.3 % (35.3-44.9); Hemoglobin 13.6 g/dL (11.5-15.4); Immature Granulocytes % 0.4 % (0-4); Immature Platelets 1.5 % (1.1-6.1); Lymphocytes # 0.8 K/mcL (0.6-4.6); Lymphocytes % 16.6 %; Mean Corpuscular HGB Conc 32.9 g/dL (31.6-35.5); Mean Corpuscular Hemoglobin 27.5 pg (28.0-33.3); Mean Corpuscular Volume 83.6 fL (83.0-100.0); Mean Platelet Volume 9.1 fL (9.4-12.4); Monocytes # 0.3 K/mcL (0.0-1.3); Monocytes % 6.6 %; Neutrophils # 3.8 K/mcL (1.6-8.9); Platelet Count 155 K/mcL (140-400); Red Blood Count 4.94 M/mcL (3.82-4.97); Red Cell Distribution Width 13.3 % (11.5-14.5); Segmented Neutrophils % 76.2 %
[2020-03-18 22:57] LABS: Activated Partial Thrombo Time 27.7 Seconds (26.0-36.0)
[2020-03-18 23:11] LABS: Alanine Aminotransferase 10 Units/L (7-52); Albumin 4.1 g/dL (3.5-5.7); Albumin/Globulin Ratio 1.6 (1.1-2.2); Alkaline Phosphatase 60 Units/L (34-104); Aspartate Amino Transferase 11 Units/L (13-39); BUN/Creatinine Ratio 11 (6-26); Bilirubin,Direct 0.1 mg/dL (0.0-0.2); Bilirubin,Indirect 0.4 mg/dL (0.0-1.0); Bilirubin,Total 0.5 mg/dL (0.3-1.0); Blood Urea Nitrogen 11 mg/dL (6-20); C-Reactive Protein 71 mg/L (Less than 10); Calcium 8.4 mg/dL (8.6-10.3); Carbon Dioxide 27 mEq/L (23-29); Chloride 101 mEq/L (98-107); Globulin 2.6 g/dL (2.4-3.5); Glucose 92 mg/dL (70-105); Lactate Dehydrogenase 143 Units/L (140-271); Magnesium 2.1 mg/dL (1.6-2.6); Osmolality,Calculated 283 (280-300); Potassium 2.9 mEq/L (3.5-5.1); Sodium 137 mEq/L (136-145); Total Protein 6.7 g/dL (6.4-8.9); eGFR For African Americans > 60 (> 60); eGFR For Non-African Americans 58 (> 60)
[2020-03-18 23:13] LABS: Troponin I < 0.03 ng/mL (< 0.04)
[2020-03-18 23:31] LABS: Ferritin 91 ng/mL (10-120)
[2020-03-18] MEDS ORDERED: Potassium Chloride 40 MEQ, Lidocaine 1% 2 ML in 0.9 % Sodium Chloride 500 ML IVPB ONE (23:45)
[2020-03-19] MEDS ORDERED: Dexamethasone 4 MG/ML VIAL IVP STA (01:10)
[2020-03-19] MEDS ORDERED: Azithromycin 500 MG in 0.9 % Sodium Chloride 250 ML IVPB ONE (01:10)
[2020-03-19] MEDS ORDERED: cefTRIAXone 1,000 MG in Water for inj. (sterile) 10 ML IVP ONE (01:10)
[2020-03-19] MEDS ORDERED: Naloxone 0.4 MG/ML INJ IVP PRN (01:50)
[2020-03-19] MEDS ORDERED: Ondansetron 4 MG/2 ML VIAL IVP PRN (01:50)
[2020-03-19 05:52] LABS: Basophils % 0.2 %; Hemoglobin 13.2 g/dL (11.5-15.4); Immature Granulocytes % 0.2 % (0-4); Lymphocytes # 0.4 K/mcL (0.6-4.6); Lymphocytes % 8.9 %; Mean Corpuscular Hemoglobin 27.6 pg (28.0-33.3); Mean Corpuscular Volume 83.5 fL (83.0-100.0); Mean Platelet Volume 9.2 fL (9.4-12.4); Monocytes # 0.2 K/mcL (0.0-1.3); Monocytes % 4.2 %; Neutrophils # 3.5 K/mcL (1.6-8.9); Platelet Count 121 K/mcL (140-400); Red Blood Count 4.79 M/mcL (3.82-4.97); Red Cell Distribution Width 13.2 % (11.5-14.5); Segmented Neutrophils % 86.5 %; White Blood Count 4.1 K/mcL (4.3-11.1)
[2020-03-19 06:29] LABS: Ferritin 89 ng/mL (10-120); Lactate Dehydrogenase 144 Units/L (140-271)
[2020-03-19 06:32] LABS: Alanine Aminotransferase 10 Units/L (7-52); Albumin/Globulin Ratio 1.6 (1.1-2.2); Alkaline Phosphatase 63 Units/L (34-104); Aspartate Amino Transferase 12 Units/L (13-39); BUN/Creatinine Ratio 13 (6-26); Bilirubin,Total 0.5 mg/dL (0.3-1.0); Blood Urea Nitrogen 11 mg/dL (6-20); Calcium 8.4 mg/dL (8.6-10.3); Carbon Dioxide 25 mEq/L (23-29); Chloride 104 mEq/L (98-107); Globulin 2.5 g/dL (2.4-3.5); Glucose 118 mg/dL (70-105); Osmolality,Calculated 286 (280-300); Potassium 3.8 mEq/L (3.5-5.1); Sodium 138 mEq/L (136-145); Total Protein 6.5 g/dL (6.4-8.9); eGFR For African Americans > 60 (> 60); eGFR For Non-African Americans > 60 (> 60)
[2020-03-19 07:10] LABS: Troponin I < 0.03 ng/mL (< 0.04)
[2020-03-19] MEDS: Zinc Sulfate 220 MG CAPSULE PO SCH (09:46)
[2020-03-19] MEDS: Cholecalciferol (D-3) 1,000 UNIT (25MCG) TABLET PO SCH (09:46)
[2020-03-19 10:01] LABS: C-Reactive Protein 79 mg/L (Less than 10)
[2020-03-19] MEDS ORDERED: *HR* Heparin 5,000 UNIT/ML VIAL SQ SCH (14:00)
[2020-03-19] MEDS ORDERED: traZODone 50 MG TABLET PO PRN (17:01)
[2020-03-19] MEDS ORDERED: lamoTRIgine 100 MG TABLET PO SCH (21:00)
[2020-03-19] MEDS ORDERED: *HR* Rivaroxaban 10 MG TABLET PO SCH (21:00)
[2020-03-19] MEDS ORDERED: ALPRAZolam 1 MG TABLET PO SCH (21:00)
[2020-03-19] MEDS: Methylphenidate HCl 5 MG TABLET PO SCH (22:22)
[2020-03-20 06:42] LABS: Hematocrit 41.1 % (35.3-44.9); Immature Granulocytes % 0.2 % (0-4)
[2020-03-20 06:44] LABS: Basophils % 0.2 %; Eosinophils % 0.7 %; Hemoglobin 13.2 g/dL (11.5-15.4); Immature Platelets 1.5 % (1.1-6.1); Lymphocytes # 1.2 K/mcL (0.6-4.6); Lymphocytes % 28.4 %; Mean Corpuscular HGB Conc 32.1 g/dL (31.6-35.5); Mean Corpuscular Hemoglobin 27.6 pg (28.0-33.3); Monocytes # 0.5 K/mcL (0.0-1.3); Monocytes % 10.6 %; Neutrophils # 2.6 K/mcL (1.6-8.9); Platelet Count 145 K/mcL (140-400); Red Blood Count 4.78 M/mcL (3.82-4.97); Red Cell Distribution Width 13.3 % (11.5-14.5); Segmented Neutrophils % 59.9 %; White Blood Count 4.3 K/mcL (4.3-11.1)
[2020-03-20 07:03] LABS: Alanine Aminotransferase 11 Units/L (7-52); Albumin 3.9 g/dL (3.5-5.7); Albumin/Globulin Ratio 1.6 (1.1-2.2); Alkaline Phosphatase 59 Units/L (34-104); Aspartate Amino Transferase 13 Units/L (13-39); BUN/Creatinine Ratio 16 (6-26); Bilirubin,Total 0.4 mg/dL (0.3-1.0); Blood Urea Nitrogen 15 mg/dL (6-20); Calcium 8.7 mg/dL (8.6-10.3); Carbon Dioxide 30 mEq/L (23-29); Chloride 104 mEq/L (98-107); Globulin 2.4 g/dL (2.4-3.5); Glucose 105 mg/dL (70-105); Osmolality,Calculated 293 (280-300); Potassium 3.3 mEq/L (3.5-5.1); Sodium 141 mEq/L (136-145); Total Protein 6.3 g/dL (6.4-8.9); eGFR For African Americans > 60 (> 60); eGFR For Non-African Americans > 60 (> 60)
[2020-03-20 07:37] VITALS: BP 96/58
[2020-03-20] MEDS: Cholecalciferol (D-3) 1,000 UNIT (25MCG) TABLET PO SCH (08:30)
[2020-03-20] MEDS: Methylphenidate HCl 5 MG TABLET PO SCH (08:33)
[2020-03-20] MEDS: Zinc Sulfate 220 MG CAPSULE PO SCH (08:33)
[2020-03-20] MEDS ORDERED: ALPRAZolam 1 MG TABLET PO SCH (09:00)
[2020-03-20] MEDS ORDERED: BuPROPion SR (12 HR) 150 MG TABLET PO SCH (09:00)
[2020-03-20] MEDS ORDERED: Dexamethasone 4 MG/ML VIAL IVP SCH (09:00)
[2020-03-20] MEDS ORDERED: Loratadine 10 MG TABLET PO SCH (09:00)
== END 2020-03-20 13:44 | disposition home or self-care (01) ==
LOC: 3BNU 21:08 → EMEROOARM 21:08 → SUATTDRO 03-19 02:09 → 3BNU 03-19 02:25 → UNDODISOB 03-20 12:30
PROVIDERS: ADMIT Student in an Organized Health Care Education/Training Program; ATTEND Family Medicine

== ENCOUNTER 2021-09-11 18:16 | Inpatient (IN) ==
[2021-09-11 19:35] LABS: Basophils % 0.4 %; Eosinophils # 0.1 K/mcL (0.0-0.6); Eosinophils % 1.2 %; Hematocrit 48.1 % (35.3-44.9); Hemoglobin 15.7 g/dL (11.5-15.4); Immature Granulocytes % 0.1 % (0-4); Lymphocytes # 1.4 K/mcL (0.6-4.6); Lymphocytes % 20.8 %; Mean Corpuscular HGB Conc 32.6 g/dL (31.6-35.5); Mean Corpuscular Hemoglobin 28.2 pg (28.0-33.3); Mean Corpuscular Volume 86.4 fL (83.0-100.0); Mean Platelet Volume 10.2 fL (9.4-12.4); Monocytes # 0.5 K/mcL (0.0-1.3); Monocytes % 7.7 %; Neutrophils # 4.7 K/mcL (1.6-8.9); Platelet Count 165 K/mcL (140-400); Red Blood Count 5.57 M/mcL (3.82-4.97); Red Cell Distribution Width 14.5 % (11.5-14.5); Segmented Neutrophils % 69.8 %; White Blood Count 6.8 K/mcL (4.3-11.1)
[2021-09-11 19:56] LABS: BUN/Creatinine Ratio 10 (6-26); Blood Urea Nitrogen 8 mg/dL (6-20); Calcium 9.8 mg/dL (8.6-10.3); Carbon Dioxide 20 mEq/L (23-29); Chloride 106 mEq/L (98-107); Glucose 95 mg/dL (70-105); Osmolality,Calculated 288 (280-300); Potassium 3.6 mEq/L (3.5-5.1); Sodium 140 mEq/L (136-145); Troponin I < 0.03 ng/mL (< 0.04); eGFR For African Americans > 60 (> 60); eGFR For Non-African Americans > 60 (> 60)
[2021-09-11] MEDS ORDERED: Ringers Solution, Lactated 1,000 ML IVC ONE (20:08)
[2021-09-11] MEDS ORDERED: Iopamidol - 370 500 ML MLS IVP ONE (20:13)
[2021-09-11] MEDS ORDERED: *HR* Heparin 5,000 UNIT/ML VIAL IVP ONE (21:55)
[2021-09-11] MEDS ORDERED: *HR* Heparin 5,000 UNIT/ML VIAL IVP PRN (21:55)
[2021-09-11] MEDS ORDERED: Heparin 25,000UNIT/250ML 1/2NS 25,000 UNIT/250 ML IV.SOLN IVC SCH (22:00)
[2021-09-11] MEDS: Heparin 25,000UNIT/250ML 1/2NS 25,000 UNIT/250 ML IV.SOLN IVC SCH (22:16)
[2021-09-11 22:31] LABS: Heparin anti-factor XA UFH 0.19 IU/mL (0.30-0.70); INR 1.5; Prothrombin Time 17.2 Seconds (9.4-12.1)
[2021-09-11 22:33] LABS: Activated Partial Thrombo Time 36.8 Seconds (26.0-36.0)
[2021-09-12] MEDS ORDERED: Ondansetron 4 MG/2 ML VIAL IVP PRN (00:27)
[2021-09-12] MEDS ORDERED: Naloxone 0.4 MG/ML INJ IVP PRN (00:27)
[2021-09-12] MEDS: Melatonin 3 MG TABLET PO PRN ×2 (01:30→21:24)
[2021-09-12] MEDS ORDERED: Perflutren Lipid Microsphere 1.3 ML in 0.9 % Sodium Chloride 8.7 ML IVP PRN (01:33)
[2021-09-12 05:59] LABS: Eosinophils % 2.3 %; Immature Granulocytes % 0.2 % (0-4)
[2021-09-12 06:01] LABS: Basophils % 0.7 %; Eosinophils # 0.1 K/mcL (0.0-0.6); Hematocrit 41.2 % (35.3-44.9); Hemoglobin 13.5 g/dL (11.5-15.4); Immature Platelets 3.2 % (1.1-6.1); Lymphocytes # 1.8 K/mcL (0.6-4.6); Lymphocytes % 29.7 %; Mean Corpuscular HGB Conc 32.8 g/dL (31.6-35.5); Mean Corpuscular Hemoglobin 28.4 pg (28.0-33.3); Mean Corpuscular Volume 86.7 fL (83.0-100.0); Mean Platelet Volume 10.4 fL (9.4-12.4); Monocytes # 0.5 K/mcL (0.0-1.3); Monocytes % 8.1 %; Neutrophils # 3.6 K/mcL (1.6-8.9); Platelet Count 120 K/mcL (140-400); Red Blood Count 4.75 M/mcL (3.82-4.97); Red Cell Distribution Width 14.3 % (11.5-14.5); White Blood Count 6.1 K/mcL (4.3-11.1)
[2021-09-12 06:19] LABS: Alanine Aminotransferase 24 Units/L (7-52); Alkaline Phosphatase 76 Units/L (34-104); Aspartate Amino Transferase 19 Units/L (13-39); BUN/Creatinine Ratio 10 (6-26); Bilirubin,Total 0.5 mg/dL (0.3-1.0); Blood Urea Nitrogen 7 mg/dL (6-20); Calcium 8.8 mg/dL (8.6-10.3); Carbon Dioxide 22 mEq/L (23-29); Chloride 107 mEq/L (98-107); Glucose 84 mg/dL (70-105); Magnesium 1.9 mg/dL (1.6-2.6); Osmolality,Calculated 285 (280-300); Phosphorous 3.6 mg/dL (2.7-4.5); Potassium 3.3 mEq/L (3.5-5.1); Sodium 139 mEq/L (136-145); Troponin I < 0.03 ng/mL (< 0.04); eGFR For African Americans > 60 (> 60); eGFR For Non-African Americans > 60 (> 60)
[2021-09-12] MEDS: Potassium Chloride Elixir 20 MEQ/15 ML UDC PO ONE ×2 (07:40→07:42)
[2021-09-12] MEDS ORDERED: Acetaminophen 325 MG TABLET PO PRN (12:14)
[2021-09-12 13:22] LABS: Hematocrit 43.8 % (35.3-44.9); Hemoglobin 14.5 g/dL (11.5-15.4)
[2021-09-12] MEDS: Heparin 25,000UNIT/250ML 1/2NS 25,000 UNIT/250 ML IV.SOLN IVC SCH (19:25)
[2021-09-12] MEDS: lamoTRIgine 100 MG TABLET PO SCH (21:24)
[2021-09-13 03:28] LABS: Hemoglobin 13.7 g/dL (11.5-15.4); Immature Granulocytes % 0.2 % (0-4)
[2021-09-13 03:30] LABS: Basophils % 0.7 %; Eosinophils # 0.1 K/mcL (0.0-0.6); Eosinophils % 2.6 %; Hematocrit 42.5 % (35.3-44.9); Immature Platelets 2.5 % (1.1-6.1); Lymphocytes # 1.5 K/mcL (0.6-4.6); Lymphocytes % 33.3 %; Mean Corpuscular HGB Conc 32.2 g/dL (31.6-35.5); Mean Corpuscular Volume 86.7 fL (83.0-100.0); Mean Platelet Volume 10.3 fL (9.4-12.4); Monocytes # 0.4 K/mcL (0.0-1.3); Monocytes % 8.5 %; Neutrophils # 2.5 K/mcL (1.6-8.9); Platelet Count 124 K/mcL (140-400); Red Cell Distribution Width 14.3 % (11.5-14.5); Segmented Neutrophils % 54.7 %; White Blood Count 4.6 K/mcL (4.3-11.1)
[2021-09-13 03:36] LABS: INR 1.3; Prothrombin Time 14.6 Seconds (9.4-12.1)
[2021-09-13 03:39] LABS: Activated Partial Thrombo Time 76.5 Seconds (26.0-36.0)
[2021-09-13 03:49] LABS: BUN/Creatinine Ratio 7 (6-26); Blood Urea Nitrogen 5 mg/dL (6-20); Calcium 9.1 mg/dL (8.6-10.3); Carbon Dioxide 22 mEq/L (23-29); Chloride 110 mEq/L (98-107); Glucose 77 mg/dL (70-105); Osmolality,Calculated 292 (280-300); Potassium 3.8 mEq/L (3.5-5.1); Sodium 143 mEq/L (136-145); eGFR For African Americans > 60 (> 60); eGFR For Non-African Americans > 60 (> 60)
[2021-09-13] MEDS: BuPROPion SR (12 HR) 150 MG TABLET PO SCH (07:47)
[2021-09-13] MEDS: Heparin 25,000UNIT/250ML 1/2NS 25,000 UNIT/250 ML IV.SOLN IVC SCH ×2 (09:59→21:02)
[2021-09-13 17:35] LABS: C.difficile Toxin A/B Gene PCR Not detected (Not detect); Campylobacter by PCR Not detected (Not detect); Plesiomonas shigelloides PCR Not detected (Not detect); Salmonella PCR Not detected (Not detect); Vibrio PCR Not detected (Not detect); Vibrio cholerae PCR Not detected (Not detect)
[2021-09-13 17:36] LABS: Adenovirus F 40/41 PCR Not detected (Not detect); Astrovirus PCR Not detected (Not detect); Cryptosporidium by PCR Not detected (Not detect); Cyclospora cayetanensis PCR Not detected (Not detect); Entamoeba histolytica PCR Not detected (Not detect); Enteroaggregative E.coli(EAEC) Not detected (Not detect); Enteropathogenic E.coli(EPEC) Not detected (Not detect); Enterotoxigenic E.coli (ETEC) Not detected (Not detect); Giardia lamblia PCR Not detected (Not detect); Norovirus GI/GII PCR Not detected (Not detect); Rotavirus A PCR Not detected (Not detect); Sapovirus PCR Not detected (Not detect); Shig/EnteroinvasiveE coli EIEC Not detected (Not detect); Shigalike tox-prod E coli STEC Not detected (Not detect); Yersinia enterocolitica PCR Not detected (Not detect)
[2021-09-13] MEDS: lamoTRIgine 100 MG TABLET PO SCH (21:02)
[2021-09-14 03:34] LABS: INR 1.2; Prothrombin Time 13.7 Seconds (9.4-12.1)
[2021-09-14 03:41] LABS: Basophils % 0.4 %; Eosinophils # 0.1 K/mcL (0.0-0.6); Eosinophils % 1.9 %; Immature Granulocytes % 0.4 % (0-4); Immature Platelets 3.6 % (1.1-6.1); Lymphocytes # 1.5 K/mcL (0.6-4.6); Lymphocytes % 29.3 %; Mean Corpuscular HGB Conc 32.6 g/dL (31.6-35.5); Mean Corpuscular Hemoglobin 28.2 pg (28.0-33.3); Mean Corpuscular Volume 86.5 fL (83.0-100.0); Mean Platelet Volume 10.2 fL (9.4-12.4); Monocytes # 0.5 K/mcL (0.0-1.3); Monocytes % 8.7 %; Neutrophils # 3.1 K/mcL (1.6-8.9); Platelet Count 120 K/mcL (140-400); Red Blood Count 4.97 M/mcL (3.82-4.97); Red Cell Distribution Width 14.5 % (11.5-14.5); Segmented Neutrophils % 59.3 %; White Blood Count 5.2 K/mcL (4.3-11.1)
[2021-09-14 03:47] LABS: BUN/Creatinine Ratio 7 (6-26); Blood Urea Nitrogen 5 mg/dL (6-20); Calcium 9.1 mg/dL (8.6-10.3); Carbon Dioxide 21 mEq/L (23-29); Chloride 109 mEq/L (98-107); Glucose 76 mg/dL (70-105); Magnesium 1.9 mg/dL (1.6-2.6); Osmolality,Calculated 288 (280-300); Potassium 3.6 mEq/L (3.5-5.1); Sodium 141 mEq/L (136-145); eGFR For African Americans > 60 (> 60); eGFR For Non-African Americans > 60 (> 60)
[2021-09-14] MEDS: BuPROPion SR (12 HR) 150 MG TABLET PO SCH (07:37)
[2021-09-14] MEDS: Lurasidone 20 MG TABLET PO SCH (14:26)
[2021-09-14] MEDS ORDERED: *HR* Warfarin 5 MG TABLET PO ONE (18:00)
[2021-09-14] MEDS ORDERED: Warfarin perPT PO PRN (18:00)
[2021-09-14] MEDS: lamoTRIgine 100 MG TABLET PO SCH (20:43)
[2021-09-15 02:37] LABS: Eosinophils % 1.9 %; Red Cell Distribution Width 14.6 % (11.5-14.5)
[2021-09-15 02:39] LABS: Basophils % 0.3 %; Eosinophils # 0.1 K/mcL (0.0-0.6); Hematocrit 42.1 % (35.3-44.9); Hemoglobin 13.8 g/dL (11.5-15.4); Immature Granulocytes % 0.2 % (0-4); Immature Platelets 2.9 % (1.1-6.1); Lymphocytes # 1.5 K/mcL (0.6-4.6); Mean Corpuscular HGB Conc 32.8 g/dL (31.6-35.5); Mean Corpuscular Hemoglobin 28.3 pg (28.0-33.3); Mean Corpuscular Volume 86.4 fL (83.0-100.0); Monocytes # 0.5 K/mcL (0.0-1.3); Neutrophils # 3.6 K/mcL (1.6-8.9); Platelet Count 126 K/mcL (140-400); Red Blood Count 4.87 M/mcL (3.82-4.97); Segmented Neutrophils % 62.6 %; White Blood Count 5.8 K/mcL (4.3-11.1)
[2021-09-15 02:49] LABS: BUN/Creatinine Ratio 7 (6-26); Blood Urea Nitrogen 5 mg/dL (6-20); Calcium 9.4 mg/dL (8.6-10.3); Carbon Dioxide 21 mEq/L (23-29); Chloride 107 mEq/L (98-107); Glucose 75 mg/dL (70-105); Magnesium 1.8 mg/dL (1.6-2.6); Osmolality,Calculated 290 (280-300); Potassium 3.4 mEq/L (3.5-5.1); Sodium 142 mEq/L (136-145); eGFR For African Americans > 60 (> 60); eGFR For Non-African Americans > 60 (> 60)
[2021-09-15 02:58] LABS: INR 1.3; Prothrombin Time 14.2 Seconds (9.4-12.1)
[2021-09-15] MEDS: Heparin 25,000UNIT/250ML 1/2NS 25,000 UNIT/250 ML IV.SOLN IVC SCH ×2 (03:15→07:15)
[2021-09-15] MEDS: *HR* Heparin 5,000 UNIT/ML VIAL IVP PRN (05:06)
[2021-09-15] MEDS: BuPROPion SR (12 HR) 150 MG TABLET PO SCH (07:44)
[2021-09-15] MEDS: Lurasidone 20 MG TABLET PO SCH (07:44)
[2021-09-15] MEDS ORDERED: Lurasidone 20 MG TABLET PO SCH (09:00)
[2021-09-15] MEDS: miSOPROStoL 100 MCG TABLET PO SCH ×2 (17:51→20:16)
[2021-09-15] MEDS ORDERED: *HR* Warfarin 5 MG TABLET PO ONE (18:00)
[2021-09-15] MEDS: lamoTRIgine 100 MG TABLET PO SCH (20:15)
[2021-09-16] MEDS: Heparin 25,000UNIT/250ML 1/2NS 25,000 UNIT/250 ML IV.SOLN IVC SCH (02:49)
[2021-09-16 05:41] LABS: Basophils % 0.3 %; Immature Granulocytes % 0.2 % (0-4); Monocytes % 8.8 %; Red Cell Distribution Width 14.6 % (11.5-14.5)
[2021-09-16 05:43] LABS: Eosinophils # 0.2 K/mcL (0.0-0.6); Eosinophils % 2.8 %; Hematocrit 41.9 % (35.3-44.9); Hemoglobin 13.9 g/dL (11.5-15.4); Immature Platelets 2.8 % (1.1-6.1); Lymphocytes # 1.6 K/mcL (0.6-4.6); Mean Corpuscular HGB Conc 33.2 g/dL (31.6-35.5); Mean Corpuscular Hemoglobin 28.6 pg (28.0-33.3); Mean Corpuscular Volume 86.2 fL (83.0-100.0); Mean Platelet Volume 10.1 fL (9.4-12.4); Monocytes # 0.5 K/mcL (0.0-1.3); Neutrophils # 3.8 K/mcL (1.6-8.9); Platelet Count 122 K/mcL (140-400); Red Blood Count 4.86 M/mcL (3.82-4.97); Segmented Neutrophils % 61.9 %; White Blood Count 6.1 K/mcL (4.3-11.1)
[2021-09-16 06:10] LABS: INR 3.2; Prothrombin Time 35.2 Seconds (9.4-12.1)
[2021-09-16] MEDS: *HR* Heparin 5,000 UNIT/ML VIAL IVP PRN (06:20)
[2021-09-16 06:34] LABS: BUN/Creatinine Ratio 8 (6-26); Blood Urea Nitrogen 6 mg/dL (6-20); Calcium 9.3 mg/dL (8.6-10.3); Carbon Dioxide 20 mEq/L (23-29); Chloride 107 mEq/L (98-107); Glucose 79 mg/dL (70-105); Magnesium 1.8 mg/dL (1.6-2.6); Osmolality,Calculated 289 (280-300); Potassium 3.5 mEq/L (3.5-5.1); Sodium 141 mEq/L (136-145); eGFR For African Americans > 60 (> 60); eGFR For Non-African Americans > 60 (> 60)
[2021-09-16] MEDS: BuPROPion SR (12 HR) 150 MG TABLET PO SCH (07:36)
[2021-09-16] MEDS: miSOPROStoL 100 MCG TABLET PO SCH ×4 (07:36→20:26)
[2021-09-16] MEDS: Lurasidone 20 MG TABLET PO SCH (07:36)
[2021-09-16 09:10] LABS: Prothrombin Time 43.8 Seconds (9.4-12.1)
[2021-09-16] MEDS: lamoTRIgine 100 MG TABLET PO SCH (20:26)
[2021-09-16] MEDS: Melatonin 3 MG TABLET PO PRN (23:48)
[2021-09-17 06:03] LABS: Hematocrit 42.6 % (35.3-44.9); Hemoglobin 14.1 g/dL (11.5-15.4)
[2021-09-17 06:19] LABS: INR 4.6; Prothrombin Time 50.8 Seconds (9.4-12.1)
[2021-09-17] MEDS: BuPROPion SR (12 HR) 150 MG TABLET PO SCH (07:59)
[2021-09-17] MEDS: Lurasidone 20 MG TABLET PO SCH (07:59)
[2021-09-17] MEDS: miSOPROStoL 100 MCG TABLET PO SCH ×4 (07:59→19:57)
[2021-09-17] MEDS ORDERED: Simethicone 80 MG TAB.CHEW PO PRN (08:27)
[2021-09-17] MEDS: lamoTRIgine 100 MG TABLET PO SCH (19:57)
[2021-09-18 03:55] LABS: Hematocrit 43.7 % (35.3-44.9); Hemoglobin 14.3 g/dL (11.5-15.4)
[2021-09-18 04:05] LABS: INR 4.4
[2021-09-18] MEDS: miSOPROStoL 100 MCG TABLET PO SCH ×4 (08:23→20:23)
[2021-09-18] MEDS: BuPROPion SR (12 HR) 150 MG TABLET PO SCH (08:23)
[2021-09-18] MEDS: Lurasidone 20 MG TABLET PO SCH (08:24)
[2021-09-18] MEDS: lamoTRIgine 100 MG TABLET PO SCH (20:23)
[2021-09-19 05:14] LABS: Hemoglobin 15.4 g/dL (11.5-15.4)
[2021-09-19 05:16] LABS: Hematocrit 46.2 % (35.3-44.9)
[2021-09-19 05:26] LABS: Prothrombin Time 48.3 Seconds (9.4-12.1)
[2021-09-19 05:27] LABS: INR 4.4
[2021-09-19] MEDS: BuPROPion SR (12 HR) 150 MG TABLET PO SCH (07:24)
[2021-09-19] MEDS: Lurasidone 20 MG TABLET PO SCH (07:24)
[2021-09-19] MEDS: miSOPROStoL 100 MCG TABLET PO SCH ×4 (07:24→20:46)
[2021-09-19] MEDS: lamoTRIgine 100 MG TABLET PO SCH (20:46)
[2021-09-20 05:17] LABS: Hematocrit 48.3 % (35.3-44.9)
[2021-09-20 05:20] LABS: INR 4.2
[2021-09-20 05:22] LABS: Prothrombin Time 46.2 Seconds (9.4-12.1)
[2021-09-20] MEDS: Lurasidone 20 MG TABLET PO SCH (08:15)
[2021-09-20] MEDS: miSOPROStoL 100 MCG TABLET PO SCH ×4 (08:15→21:51)
[2021-09-20] MEDS: BuPROPion SR (12 HR) 150 MG TABLET PO SCH (08:15)
[2021-09-20] MEDS: 0.9 % Sodium Chloride 1,000 ML IVC SCH ×2 (11:32→21:52)
[2021-09-20] MEDS ORDERED: 0.9 % Sodium Chloride 1,000 ML IVC ONE (16:53)
[2021-09-20] MEDS: lamoTRIgine 100 MG TABLET PO SCH (21:51)
[2021-09-21 02:15] LABS: Mean Platelet Volume 9.9 fL (9.4-12.4); Red Cell Distribution Width 14.6 % (11.5-14.5)
[2021-09-21 02:17] LABS: Hematocrit 41.2 % (35.3-44.9); Hemoglobin 13.6 g/dL (11.5-15.4); Immature Platelets 2.6 % (1.1-6.1); Mean Corpuscular Hemoglobin 28.3 pg (28.0-33.3); Mean Corpuscular Volume 85.8 fL (83.0-100.0); Red Blood Count 4.8 M/mcL (3.82-4.97); White Blood Count 6.5 K/mcL (4.3-11.1)
[2021-09-21 02:32] LABS: Alanine Aminotransferase 19 Units/L (7-52); Albumin 3.7 g/dL (3.5-5.7); Albumin/Globulin Ratio 1.5 (1.1-2.2); Alkaline Phosphatase 64 Units/L (34-104); Aspartate Amino Transferase 21 Units/L (13-39); BUN/Creatinine Ratio 9 (6-26); Bilirubin,Total 0.7 mg/dL (0.3-1.0); Blood Urea Nitrogen 6 mg/dL (6-20); Calcium 8.6 mg/dL (8.6-10.3); Carbon Dioxide 20 mEq/L (23-29); Chloride 109 mEq/L (98-107); Globulin 2.4 g/dL (2.4-3.5); Glucose 87 mg/dL (70-105); Magnesium 1.8 mg/dL (1.6-2.6); Osmolality,Calculated 285 (280-300); Potassium 3.2 mEq/L (3.5-5.1); Sodium 139 mEq/L (136-145); Total Protein 6.1 g/dL (6.4-8.9); eGFR For African Americans > 60 (> 60); eGFR For Non-African Americans > 60 (> 60)
[2021-09-21 02:57] LABS: INR 1.4; Prothrombin Time 15.9 Seconds (9.4-12.1)
[2021-09-21] MEDS ORDERED: Acetaminophen IV 1,000 MG/100 ML BAG IVPB ONE ×2 (05:02→15:30)
[2021-09-21] MEDS: miSOPROStoL 100 MCG TABLET PO SCH ×3 (07:41→17:50)
[2021-09-21] MEDS: Lurasidone 20 MG TABLET PO SCH (07:41)
[2021-09-21] MEDS: BuPROPion SR (12 HR) 150 MG TABLET PO SCH (07:41)
[2021-09-21] MEDS: *HR* Enoxaparin 120 MG/0.8 ML SYRINGE SQ SCH ×2 (08:03→17:50)
[2021-09-21] MEDS ORDERED: 0.9 % Sodium Chloride 1,000 ML IVC ONE (09:33)
[2021-09-21 16:09] VITALS: BP 105/68; PULSE 85; TEMP 98
[2021-09-21 16:30] VITALS: O2SAT 98
[2021-09-21] MEDS ORDERED: *HR* Warfarin 0.5 MG TABLET PO ONE (18:00)
[2021-09-21] MEDS ORDERED: *HR* Warfarin 1 MG TABLET PO ONE (18:00)
== END 2021-09-21 18:12 | disposition home or self-care (01) | DRG 175 ==
LOC: EMEROOARM 18:16 → 2ANU 18:16 → SUATTDRO 23:17 → 2ANU 09-12 00:03 → SUATTDRO 09-14 15:04 → 2ANU 09-19 18:01
PROVIDERS: ADMIT Internal Medicine; ATTEND Internal Medicine